=== PATIENT | female | born 1925 | race Caucasian/White ===

== ENCOUNTER 2016-11-02 10:37 | Observation (INO) ==
[2016-11-02] MEDS ORDERED: Naloxone 0.4 MG/ML INJ IVP PRN (14:17)
--- NOTE | 2016-11-02 14:26 | Internal Med History&Physical ---
<MassielFadumo Sergio - Last Filed: 11/02/16 14:24> Date of Encounter: 11/02/16 Time of Encounter: 13:30 Assessment and Plan (1) GI bleed Current visit: No Status: Acute Coffee ground emesis today at [facility], possibly over the weekend per family member. NG tube returning dk stomach contents. Abd rounded, soft, bs present, non-tender , denies pain. H & H stable, will continue to monitor. Protonix 40mg IV bid NPO NG tube to LIWS Monitor labs Qualifiers: GI bleed type/associated pathology: unspecified gastrointestinal hemorrhage type Qualified Code(s): K92.2 - Gastrointestinal hemorrhage, unspecified (2) Nausea & vomiting Current visit: Yes Status: Acute Vomiting episodes this a.m. at [facility]. Denies nausea now. Zofran 4mg IVP q6h prn n/v Qualifiers: Vomiting type: hematemesis Qualified Code(s): K92.0 - Hematemesis; R11.0 - Nausea (3) Dementia Current visit: Yes Status: Acute Pt has episodes of "chasing others" in the hallway and becoming aggressive with staff at [facility] per family. Pt taking Prolixin q4h after Xanax and Ativan were no longer effective. Will continue home medications once list is reconciled. Pt will have sitter since she has been pulling at NG tube. Pt is alert, oriented to name only, but does answer questions appropriately. Sitter Resume Prolixin Fall precautions Bed alarm Qualifiers: Dementia type: unspecified type Dementia behavioral disturbance: with behavioral disturbance Qualified Code(s): F03.91 - Unspecified dementia with behavioral disturbance (4) Risk for falls Current visit: Yes Status: Chronic R hip fx from fall 2 mos ago. Plan as above. (5) GERD (gastroesophageal reflux disease) Current visit: Yes Status: Chronic Plan as above Qualifiers: Esophagitis presence: esophagitis presence not specified Qualified Code(s) : K21.9 - Gastro-esophageal reflux disease without esophagitis Internal Medicine - H&P: HPI Chief complaint: upper GI bleed, n/v Admitted From: Hospital to Hospital Transfer Plans for Post Hospital Care: Transfer Senior Care Facility History of present illness: Ms. Honeycutt is a 89 year old female with minimal medical history other than GERD , prior GI bleed, recent R hip fx, and dementia. Pt is pleasant and was transfered from [facility] with upper GI bleed. She lives in an ECF and had an episode of dark emesis either 2 or 3 days ago per family at , again with nausea and coffee ground emesis this a.m. Pt was sent to [place], NG tube placed and is returning dk stomach contents. Pt denies pain or nausea now. She is alert to name only, however, appears to answer other questions appropriately. Abd rounded, non-tender, bs present. Family reports episode of same about 5-6 years ago. GI consult completed by Dr. Tierney. Past Med Surg Social Fam HX - Past Medical History Medical history: dementia, GI bleed (4-5 yrs ago) Psychiatric history: no psych history - Past Surgical History Surgical History: orthopedic, other - Social History Smoking Status: Never smoker Smokeless Tobacco Status: No Alcohol use: none Drug use: none Internal Medicine - H&P: Meds Acetaminophen [Tylenol] 500 mg PO Q6HR 11/02/16 [History] Celecoxib [Celebrex] 100 mg PO BID 11/02/16 [History] Cephalexin [Keflex] 500 mg PO BID 11/02/16 [History] Prolixin 1 mg PO Q4H 11/02/16 [History] Tramadol HCl [Ultram] 50 mg PO Q4H PRN 11/02/16 [History] Allergies No Known Allergies Allergy (Verified 09/08/16 02:27) All Systems PM: A 10-system review of systems was performed and is negative for pertinent findings except as documented above in the HPI. - Constitutional Constitutional: no chills, no fever(s), no falls, no weakness - Cardiovascular Cardiovascular ROS IM: no chest pain, no dyspnea on exertion, no edema - Respiratory Respiratory: no cough, no chest congestion - Gastrointestinal Gastrointestinal: coffee ground emesis, nausea, vomiting, no bloating, no constipation, no cramping, no diarrhea, no dysphagia, no heartburn, no hematemesis, no hematochezia, no loose stools - Genitourinary Genitourinary: dysuria - Constitutional General appearance: Present: cooperative, A&O X 1, pleasant, no acute distress Exam: Pt is alert to name only. She becomes agitated during exam and begins to pull on NG tube, however, is easily redirected. - Head Head exam: Present: normal inspection - Eye Eye exam: Present: normal appearance, conjuntiva pink - ENT ENT exam: Present: mucous membranes dry - Neck Neck exam general surgery: Present: normal inspection. Absent: lymphadenopathy , tenderness - Respiratory Respiratory exam: Absent: chest wall tenderness, decreased breath sounds, respiratory distress, rhonchi, stridor, wheezes - Cardiovascular Cardiovascular exam: Present: RRR, +S1, +S2. Absent: bradycardia, tachycardia - GI/Abdominal GI/Abdominal exam: Present: distended, normal bowel sounds, soft. Absent: guarding, tenderness - Neurological Exam Neurological exam: Present: alert, altered, strengths equal and symetr throughout. Absent: speech deficit Additional comments: Pt alert to name only. Internal Med - H&P Results - EKG Data Prior EKG available for review: no EKG comments: 11/02/16 14:41 Left Bundle Branch Block/Sinus rhythm Rate 90 OK int 135 QRS 38 QT/QTc 397/445 <Joe Tierney P - Last Filed: 11/02/16 19:36> Date of Encounter: 11/02/16 Internal Medicine - H&P: HPI History of present illness: Ms. Honeycutt is a 89 year old female All Systems PM: A 10-system review of systems was performed and is negative for pertinent findings except as documented above in the HPI. - Attending Attestation I examined this patient and my medical decision-making was reviewed with the PHYSICAL AERODYNAMICIST/PA/Advanced Practice Nurse/Resident Physician. I agree with the documented findings, disposition and treatment plan as described except to the extent set forth below.
[2016-11-02] MEDS ORDERED: *HR* LORazepam 2 MG/ML VIAL IVP ONE (14:31)
[2016-11-02] MEDS ORDERED: Water for inj. (sterile) 10 ML IV ONE (14:46)
[2016-11-02] MEDS ORDERED: Ondansetron 4 MG/2 ML VIAL IVP PRN (14:49)
[2016-11-02] MEDS: 0.9 % Sodium Chloride 1,000 ML IVC SCH (15:15)
[2016-11-02] MEDS ORDERED: Haloperidol Lactate 5 MG/ML VIAL IM ONE (16:20)
[2016-11-02] MEDS: Pantoprazole 40 MG VIAL IVP SCH (17:48)
[2016-11-03] MEDS ORDERED: Haloperidol Lactate 5 MG/ML VIAL IVP ONE (01:12)
[2016-11-03 05:02] LABS: Basophils % 0.5 %; Eosinophils # 0.2 K/mcL (0.0-0.6); Eosinophils % 1.8 %; Hematocrit 31.1 % (35.3-44.9); Hemoglobin 9.7 g/dL (11.5-15.4); Immature Granulocytes % 0.3 % (0-4); Lymphocytes # 1.5 K/mcL (0.6-4.6); Lymphocytes % 17.5 %; Mean Corpuscular HGB Conc 31.2 g/dL (31.6-35.5); Mean Corpuscular Hemoglobin 28.5 pg (28.0-33.3); Mean Corpuscular Volume 91.5 fL (83.0-100.0); Mean Platelet Volume 10.5 fL (9.4-12.4); Monocytes # 0.7 K/mcL (0.0-1.3); Monocytes % 8.5 %; Neutrophils # 6.2 K/mcL (1.6-8.9); Platelet Count 271 K/mcL (140-400); Red Cell Distribution Width 13.7 % (11.5-14.5); Segmented Neutrophils % 71.4 %
[2016-11-03 05:29] LABS: BUN/Creatinine Ratio 25 (6-26); Blood Urea Nitrogen 19 mg/dL (7-20); Calcium 8.2 mg/dL (8.6-10.8); Carbon Dioxide 30 mEq/L (19-29); Chloride 104 mEq/L (98-109); Glucose 79 mg/dL (70-99); Osmolality,Calculated 297 (280-300); Potassium 2.8 mEq/L (3.5-4.5); Sodium 143 mEq/L (136-145); eGFR For African Americans > 60 (> 60); eGFR For Non-African Americans > 60 (> 60)
[2016-11-03] MEDS: Pantoprazole 40 MG VIAL IVP SCH ×2 (06:21→17:54)
[2016-11-03] MEDS ORDERED: *HR* Midazolam HCl 5 MG/5 ML VIAL IVP ONE (07:18)
[2016-11-03] MEDS ORDERED: *HR* FentaNYL (PF) 100 MCG/2 ML VIAL ONE (07:19)
[2016-11-03] MEDS ORDERED: 0.9 % Sodium Chloride 1,000 ML IVC SCH (07:30)
[2016-11-03] MEDS ORDERED: Tetracaine/Benzocaine/Butamben 200MG/SPRAY (100SPY/BOT) MM ONE (07:43)
[2016-11-03] MEDS ORDERED: *HR* Midazolam HCl 5 MG/5 ML VIAL IVP PRN (07:43)
[2016-11-03] MEDS ORDERED: *HR* FentaNYL (PF) 100 MCG/2 ML VIAL IVP PRN (07:43)
[2016-11-03] MEDS ORDERED: Simethicone 40 MG/0.6 ML MLS IR ONE (07:43)
[2016-11-03] MEDS: 0.9 % Sodium Chloride 1,000 ML IVC SCH (09:03)
[2016-11-03] MEDS: Potassium Chloride 40 MEQ, Lidocaine 1% 2 ML in D5% in Water 500 ML IVPB SCH ×3 (11:37→20:16)
[2016-11-03] MEDS: amLODIPine 5 MG TABLET PO SCH ×2 (11:39→13:52)
--- NOTE | 2016-11-03 12:06 | Gastroenterology Consult Note ---
<Hu Fam - Last Filed: 11/03/16 12:03> Date of Encounter: 11/03/16 Time of Encounter: 10:30 - Assessment and plan (1) Upper GI bleed Status: Acute Assessment and plan: EGD completed this AM large hiatal hernia, 2 localized spot with visible vessels with no bleeding but stigmata of recent bleeding. Clips were placed. Continue on soft diet. Carafate 3 times a day for one month, twice a day PPI 2 weeks then daily for 2 months. (2) Nausea & vomiting Status: Acute Assessment and plan: Secondary to upper GI bleed. Qualifiers: Vomiting type: hematemesis Qualified Code(s): K92.0 - Hematemesis; R11.0 - Nausea (3) Dementia Status: Acute Qualifiers: Dementia type: unspecified type Dementia behavioral disturbance: with behavioral disturbance Qualified Code(s): F03.91 - Unspecified dementia with behavioral disturbance - Time Spent With Patient Total time spent is greater than 50% in coordination of care (as documented) at patient's floor/unit and/or counseling patient: GI History of Present Illness - Data of Consult Patient: new to practice Consult date: 11/03/16 Requesting Physician: Alexi Estevez - Consult Narrative Reason for consult: Upper GI bleed History of present illness: Ms. Honeycutt is a 89 year old female with PMHx of dementia, GERD, recent right hip fx, and GI bleed 4-5 years ago. She was transferred for [facility] with upper GI bleed. She had an episode of dark emesis at [facility] 2-3 days ago, and had coffee- ground emesis yesterday. NG tube was inserted and returned with dark stomach contents. Family reported similar episode of GI bleeding several years ago. Pt denies abdominal pain or nausea at this time. Procedures: EGD 08/07/2010 Dr. Louis with LA Grade D esophagitis, hiatal hernia, diverticulum and middle third of esophagus, bleeding erosive gastropathy. Biopsy consistent with ulcerative esophagitis, no intestinal metaplasia, dysplasia or malignancy. NSAIDs: None Anticoagulation: None Past Med Surg Social Fam HX - Past Medical History Medical history: dementia, GI bleed (4-5 yrs ago) Psychiatric history: no psych history - Past Surgical History Surgical History: orthopedic, other - Social History Smoking Status: Never smoker Smokeless Tobacco Status: No Alcohol use: none Drug use: none - Gastrointestinal Gastrointestinal: Present: as per HPI - Constitutional Constitutional: as per HPI - EENT Eyes: as per HPI Ears: Present: as per HPI Nose, mouth and throat: Present: as per HPI - Cardiovascular Cardiovascular ROS: Present: as per HPI - Respiratory Respiratory IM: Present: as per HPI - Genitourinary Genitourinary: Absent: change in color, Urinary frequency - Neurological ROS Neurological GI: Present: as per HPI - Hematologic/Lymphatic Hematologic/Lymphatic pediatric: Present: as per HPI - Musculoskeletal Musculoskeletal ROS GI: Present: as per HPI - Integumentary Integumentary GI: Present: as per HPI - Psychiatric ROS Psychiatric GI: Present: as per HPI - Endocrine Endocrine IM: Present: as per HPI - Constitutional Vitals: Temp Pulse Resp BP Pulse Ox 98.5 F 79 18 181/81 95 11/03/16 11:57 11/03/16 11:57 11/03/16 11:57 11/03/16 11:57 11/03/16 11:57 General appearance: Present: cooperative, no acute distress, answers questions appropriately - Head Head exam: Present: atraumatic, normocephalic - Eye Eye exam: Present: normal appearance, sclera anicteric - ENT ENT exam: Present: mucous membranes dry - Neck Neck exam general surgery: Present: normal inspection, trachea midline - Respiratory Respiratory exam: Present: CTAB. Absent: rales, rhonchi - Cardiovascular Cardiovascular exam: Present: RRR, +S1, +S2 - GI/Abdominal GI/Abdominal exam: Present: soft, no peritoneal signs. Absent: distended, firm , guarding, tenderness - Rectal Rectal exam: Present: deferred - Extremities Exam Extremities exam: Present: warm - Neurological Exam Neurological exam: Present: no focal deficits - Psychiatric Psychiatric exam: Present: normal affect, normal mood - Skin Skin exam: Present: dry, intact, normal color, warm Results - Labs CBC & Chem 7: 11/03/16 04:42 11/03/16 04:42 Labs: Last Result Calcium 8.2 mg/dL (8.6-10.8) L 11/03/16 04:42 Entire Visit Hgb 9.7 g/dL (11.5-15.4) L D 11/03/16 04:42 Hct 31.1 % (35.3-44.9) L 11/03/16 04:42 Consult Discharge Plan - Plan Referrals: Librado Bennett MD [Primary Care Provider] - Tonia Aguilar MD [Partnered Physician] - <Tonia Aguilar - Last Filed: 11/16/16 18:01> Time of Encounter: 08:00 - Time Spent With Patient Total time spent is greater than 50% in coordination of care (as documented) at patient's floor/unit and/or counseling patient: GI History of Present Illness - Data of Consult Requesting Physician: Alexi Estevez - Consult Narrative History of present illness: Ms. Honeycutt is a 89 year old female - Constitutional Vitals: Temp Pulse Resp BP Pulse Ox 97.4 F L 78 18 151/81 97 11/04/16 15:54 11/04/16 15:54 11/04/16 15:54 11/04/16 15:54 11/04/16 15:54 Results - Labs CBC & Chem 7: 11/04/16 05:35 11/04/16 05:35 Labs: Last Result Calcium 8.5 mg/dL (8.6-10.8) L 11/04/16 05:35 Entire Visit Hgb 9.9 g/dL (11.5-15.4) L 11/04/16 05:35 Hct 30.2 % (35.3-44.9) L 11/04/16 05:35 - Attending Attestation I examined this patient and my medical decision-making was reviewed with the TUFTER HAND/PA/Advanced Practice Nurse/Resident Physician. I agree with the documented findings, disposition and treatment plan as described except to the extent set forth below.
[2016-11-03] MEDS: Sucralfate 1 GM TABLET PO SCH ×3 (14:13→23:23)
--- NOTE | 2016-11-03 15:23 | Internal Med Progress Note ---
Date of Encounter: 11/03/16 Time of Encounter: 15:21 - Assessment and plan (1) Upper GI bleed Current Visit: Yes Status: Acute Assessment and plan: EGD completed this AM large hiatal hernia, 2 localized spot with visible vessels with no bleeding but stigmata of recent bleeding. Clips were placed. Continue on soft diet. GI recommended Carafate 3 times a day for one month, twice a day PPI 2 weeks then daily for 2 months. will monitor cbc, repeat tomm am, if stable dc (2) Dementia Current Visit: Yes Status: Acute Assessment and plan: at baseline. Qualifiers: Dementia type: unspecified type Dementia behavioral disturbance: with behavioral disturbance Qualified Code(s): F03.91 - Unspecified dementia with behavioral disturbance (3) Nausea & vomiting Current Visit: Yes Status: Acute Assessment and plan: resolved. Qualifiers: Vomiting type: hematemesis Qualified Code(s): K92.0 - Hematemesis; R11.0 - Nausea (4) Hypertension Current Visit: Yes Status: Acute Assessment and plan: uncontrolled. have added amlodipine this morning. will continue to monitor labetalol IV prn if systolic BP >180 Qualifiers: Hypertension type: essential hypertension Qualified Code(s): I10 - Essential (primary) hypertension - Time Spent With Patient 25 - 35 minutes - Subjective Interval history: Patient seen in the bedside, lying in bed in no acute distress. Denies abdominal pain, nausea or vomiting. Status post EGD completed this AM large hiatal hernia, 2 localized spot with visible vessels with no bleeding but stigmata of recent bleeding. Clips were placed. Continue on soft diet. - Constitutional Vitals: Temp Pulse Resp BP Pulse Ox 98.5 F 79 18 181/81 95 11/03/16 11:57 11/03/16 11:57 11/03/16 11:57 11/03/16 11:57 11/03/16 11:57 General appearance: Present: cooperative, A&O X 1, pleasant, no acute distress Exam: - Head Head exam: Present: atraumatic, normocephalic - Eye Eye exam: Present: normal appearance, sclera anicteric - ENT ENT exam: Present: mucous membranes dry - Neck Neck exam general surgery: Present: normal inspection, trachea midline - Respiratory Respiratory exam: Present: CTAB. Absent: rales, rhonchi - Cardiovascular Cardiovascular exam: Present: RRR, +S1, +S2 - GI/Abdominal GI/Abdominal exam: Present: soft, no peritoneal signs. Absent: distended, firm , guarding, tenderness - Rectal Rectal exam: Present: deferred - Extremities Exam Extremities exam: Present: warm - Neurological Exam Neurological exam: Present: no focal deficits - Psychiatric Psychiatric exam: Present: normal affect, normal mood - Skin Skin exam: Present: dry, intact, normal color, warm Internal Medicine: Result - Labs CBC & Chem 7: 11/03/16 04:42 11/03/16 04:42 Labs: Short CBC 11/03/16 Range/Units 04:42 WBC 8.7 (4.3-11.1) K/mcL Hgb 9.7 L D (11.5-15.4) g/dL Hct 31.1 L (35.3-44.9) % Plt Count 271 (140-400) K/mcL Neutrophils # 6.2 (1.6-8.9) K/mcL BMP 11/03/16 04:42 Sodium 143 Potassium 2.8 L Chloride 104 Carbon Dioxide 30 H BUN 19 Creatinine 0.77 Glucose 79 Calcium 8.2 L Consult Discharge Plan - Plan Referrals: Librdao Bennett MD [Primary Care Provider] -
[2016-11-03] MEDS ORDERED: *HR* Labetalol 20 MG/4 ML SYRINGE IVP PRN (15:24)
[2016-11-04] MEDS: 0.9 % Sodium Chloride 1,000 ML IVC SCH ×2 (04:14→14:30)
[2016-11-04 05:58] LABS: Basophils % 0.3 %; Eosinophils # 0.5 K/mcL (0.0-0.6); Eosinophils % 5.4 %; Hematocrit 30.2 % (35.3-44.9); Hemoglobin 9.9 g/dL (11.5-15.4); Immature Granulocytes % 0.3 % (0-4); Lymphocytes # 1.8 K/mcL (0.6-4.6); Mean Corpuscular HGB Conc 32.8 g/dL (31.6-35.5); Mean Corpuscular Hemoglobin 28.8 pg (28.0-33.3); Mean Corpuscular Volume 87.8 fL (83.0-100.0); Mean Platelet Volume 10.2 fL (9.4-12.4); Monocytes # 0.7 K/mcL (0.0-1.3); Monocytes % 8.1 %; Neutrophils # 5.7 K/mcL (1.6-8.9); Platelet Count 279 K/mcL (140-400); Red Blood Count 3.44 M/mcL (3.82-4.97); Red Cell Distribution Width 13.7 % (11.5-14.5); Segmented Neutrophils % 64.9 %
[2016-11-04] MEDS: Pantoprazole 40 MG VIAL IVP SCH (06:00)
[2016-11-04 06:14] LABS: BUN/Creatinine Ratio 20 (6-26); Blood Urea Nitrogen 13 mg/dL (7-20); Calcium 8.5 mg/dL (8.6-10.8); Carbon Dioxide 24 mEq/L (19-29); Chloride 107 mEq/L (98-109); Glucose 92 mg/dL (70-99); Osmolality,Calculated 286 (280-300); Sodium 138 mEq/L (136-145); eGFR For African Americans > 60 (> 60); eGFR For Non-African Americans > 60 (> 60)
[2016-11-04] MEDS: amLODIPine 5 MG TABLET PO SCH (09:45)
[2016-11-04] MEDS: Sucralfate 1 GM TABLET PO SCH ×2 (09:46→14:30)
--- NOTE | 2016-11-04 15:46 | Discharge Summary ---
Date of Encounter: 11/04/16 Time of Encounter: 15:44 - Discharge Diagnosis (1) Upper GI bleed Priority: Primary Status: Acute (2) Dementia Priority: Secondary Status: Acute Qualifiers: Dementia type: unspecified type Dementia behavioral disturbance: with behavioral disturbance Qualified Code(s): F03.91 - Unspecified dementia with behavioral disturbance (3) Nausea & vomiting Priority: Primary Status: Acute Qualifiers: Vomiting type: hematemesis Qualified Code(s): K92.0 - Hematemesis; R11.0 - Nausea (4) Hypertension Priority: Secondary Status: Acute Qualifiers: Hypertension type: essential hypertension Qualified Code(s): I10 - Essential (primary) hypertension - Discharge Medications Prescriptions: Amlodipine [Norvasc] 10 mg PO DAILY #30 tablet Omeprazole [PriLOSEC] 40 mg PO BIDAC #120 capsule. Sucralfate [Carafate] 1 gm PO QIDAC #120 tablet Home Medications: Acetaminophen [Tylenol] 500 mg PO Q6HR 11/02/16 [History] Celecoxib [Celebrex] 100 mg PO BID 11/02/16 [History] Cephalexin [Keflex] 500 mg PO BID 11/02/16 [History] Fluphenazine HCl 1 mg PO Q4H PRN 11/02/16 [History] Tramadol HCl [Ultram] 50 mg PO Q4H PRN 11/02/16 [History] Amlodipine [Norvasc] 10 mg PO DAILY #30 tablet 11/04/16 [Rx] Omeprazole [PriLOSEC] 40 mg PO BIDAC #120 capsule. 11/04/16 [Rx] Sucralfate [Carafate] 1 gm PO QIDAC #120 tablet 11/04/16 [Rx] Allergies/Adverse Reactions: Allergies No Known Allergies Allergy (Verified 09/08/16 02:27) Procedures/tests Complete & Pending: Procedures Performed prior 72 hours Category Date Time Status ECG 12 lead ECG [ECG] Routine Y 11/02/16 08:52 Completed Date of admission: 11/02/16 12:45 Primary care physician: Librado Bennett MD Consults: 11/02/16 14:23 Consult to Occupational Therapy [CONS] Routine Comment: Evaluate, develop and implement POC Consult to Physical Therapy [CONS] Routine Comment: Evaluate, develop and implement POC 11/03/16 09:29 Consult to Lab Head [CONS] Routine Reason for SW Consult: discharge planning Discharging clinician: Alexi Estevez Anticipated date of discharge: 11/04/16 - Patient Status Disposition: Transfer SNF Condition: Fair Functional capacity at discharge: uses cane/walker Overall status at discharge: patient is progressing back to baseline - Discharge Instructions Follow Up With: Librado Bennett MD [Primary Care Provider] - Tonia Aguilar MD [Partnered Physician] - - Diet and Activity Activity: as per physical therapy Diet: advance to your usual diet Interval History: Ms. Honeycutt is a 89 year old female with PMHx of dementia, GERD, recent right hip fx, and GI bleed 4-5 years ago. She was transferred for [place] [facility] with upper GI bleed. She had an episode of dark emesis at [facility] 2-3 days ago, and had coffee- ground emesis yesterday. NG tube was inserted and returned with dark stomach contents. Family reported similar episode of GI bleeding several years ago. Pt denies abdominal pain or nausea at this time. Procedures: EGD 08/07/2010 Dr. Louis with [place] Grade D esophagitis, hiatal hernia, diverticulum and middle third of esophagus, bleeding erosive gastropathy. Biopsy consistent with ulcerative esophagitis, no intestinal metaplasia, dysplasia or malignancy. NSAIDs: None Anticoagulation: None She was admitted for further management appreciate need. GI was consulted and EGD was completed , large hiatal hernia, 2 localized spot with visible vessels with no bleeding but stigmata of recent bleeding. Clips were placed. She was started on Carafate 3 times a day for one month, twice a day PPI 2 weeks then daily for 2 months. repeat cbc today is stable, she denies any hematemesis or angela and she is being dc in stable condition. Hospital course: Ms. Honeycutt is a 89 year old female Time spent discussing smoking cessation with patient: more than 10 minutes - Time Spent with Patient Total time spent providing and/or coordinating discharge services: Greater than 30 minutes - Constitutional Vitals: Temp Pulse Resp BP Pulse Ox 97.4 F L 67 18 147/70 99 11/04/16 11:35 11/04/16 11:35 11/04/16 11:35 11/04/16 11:35 11/04/16 11:35 General appearance: Present: cooperative, A&O X 1, pleasant, no acute distress Exam: Head Head exam: Present: atraumatic, normocephalic - Eye Eye exam: Present: normal appearance, sclera anicteric - ENT ENT exam: Present: mucous membranes dry - Neck Neck exam general surgery: Present: normal inspection, trachea midline - Respiratory Respiratory exam: Present: CTAB. Absent: rales, rhonchi - Cardiovascular Cardiovascular exam: Present: RRR, +S1, +S2 - GI/Abdominal GI/Abdominal exam: Present: soft, no peritoneal signs. Absent: distended, firm , guarding, tenderness - Rectal Rectal exam: Present: deferred - Extremities Exam Extremities exam: Present: warm - Neurological Exam Neurological exam: Present: no focal deficits - Psychiatric Psychiatric exam: Present: normal affect, normal mood - Skin Skin exam: Present: dry, intact, normal color, warm
[2016-11-04 15:55] VITALS: BP 151/81
--- NOTE | 2016-11-04 16:41 | Physician Discharge Referral ---
ExtendedCare Referral Info Transfer To: [facility] Provider in Charge: shakir cook Institutional Level of Care: Intermediate - MR - Diagnosis (1) Upper GI bleed Status: Acute (2) Dementia Status: Acute (3) Nausea & vomiting Status: Acute (4) Hypertension Status: Acute - Transfer Medications Prescriptions: Amlodipine [Norvasc] 10 mg PO DAILY #30 tablet Omeprazole [PriLOSEC] 40 mg PO BIDAC #120 capsule. Sucralfate [Carafate] 1 gm PO QIDAC #120 tablet Home Medications: Acetaminophen [Tylenol] 500 mg PO Q6HR 11/02/16 [History] Celecoxib [Celebrex] 100 mg PO BID 11/02/16 [History] Cephalexin [Keflex] 500 mg PO BID 11/02/16 [History] Fluphenazine HCl 1 mg PO Q4H PRN 11/02/16 [History] Tramadol HCl [Ultram] 50 mg PO Q4H PRN 11/02/16 [History] Amlodipine [Norvasc] 10 mg PO DAILY #30 tablet 11/04/16 [Rx] Omeprazole [PriLOSEC] 40 mg PO BIDAC #120 capsule. 11/04/16 [Rx] Sucralfate [Carafate] 1 gm PO QIDAC #120 tablet 11/04/16 [Rx] Allergies/Adverse Reactions: Allergies No Known Allergies Allergy (Verified 09/08/16 02:27) - Respiratory Orders Smoking Cessation: Smoking cessation has been advised. For more information, call the [employer] Tobacco Quit Line at 7-327-RZVL-NOW. - Advance Directives Code Status: DNR-Arrest/Don't Intubate - Mobility Orders Chair - Rehabiliation Orders Rehab Potential: Fair Rehab Orders: ROM Exercises, Evaluation for Physical Therapy, Evaluation for Occupational Therapy - Diet Orders Regular CERTIFICATION: I certify that the transfer of the above named patient to an Extended Care Facility is necessary for the continuing treatment of the diagnosis listed. The above information is true and accurate reflection of patient's current condition. Confidential - Redisclosure prohibited without a patient's written consent.
== END 2016-11-04 17:25 ==
LOC: 3ANU
PROVIDERS: ADMIT Internal Medicine; ATTEND Internal Medicine Endocrinology, Diabetes & Metabolism

== ENCOUNTER 2016-11-07 18:05 | Inpatient (IN) ==
--- NOTE | 2016-11-07 18:15 | Emergency Department Note ---
Disposition Clinical Impression: Hematemesis, GI bleed Disposition: Admitted As Inpatient Condition: Serious General Adult HPI - General Chief complaint: ED GI Bleed Stated complaint: gi bleed Time Seen by Provider: 11/07/16 18:08 - Related Data Home Medications Medication Instructions Recorded Confirmed Acetaminophen [Tylenol] 500 mg PO Q6HR PRN 11/02/16 11/08/16 Celecoxib [Celebrex] 100 mg PO BID 11/02/16 11/08/16 Fluphenazine HCl 1 mg PO Q4H PRN 11/02/16 11/08/16 Tramadol HCl [Ultram] 50 mg PO Q4H PRN 11/02/16 11/08/16 Ferrous Sulfate [Iron] 325 mg PO DAILY 11/08/16 11/08/16 Previous Rx's Medication Instructions Recorded Amlodipine [Norvasc] 10 mg PO DAILY #30 tablet 11/04/16 Omeprazole [PriLOSEC] 40 mg PO BIDAC #120 capsule. 11/04/16 Sucralfate [Carafate] 1 gm PO QIDAC #120 tablet 11/04/16 Allergies Allergy/AdvReac Type Severity Reaction Status Date / Time No Known Allergies Allergy Verified 09/08/16 02:27 Past Medical History - Past Medical History Medical history: Reports: dementia, GI bleed (4-5 yrs ago) Surgical history: Reports: orthopedic, other Psychiatric history: Reports: no psych history - Social History Smoking Status: Never smoker Smokeless Tobacco Status: No Alcohol use: Reports: none Drug use: Reports: none Course Vital Signs Temperature 98.1 F 11/07/16 18:09 Pulse Rate 93 11/07/16 18:09 Respiratory Rate 20 11/07/16 18:09 Blood Pressure 129/59 11/07/16 18:09 O2 Sat by Pulse Oximetry 96 11/07/16 18:09 Temperature 96.6 F L 11/09/16 10:40 Pulse Rate 100 11/09/16 10:40 Respiratory Rate 16 11/09/16 10:40 Blood Pressure 131/98 11/09/16 10:40 O2 Sat by Pulse Oximetry 100 11/09/16 10:40 Oxygen Delivery Oxygen Delivery Room Air Medical Decision Making - Lab Data Result diagrams: 11/09/16 11:09 11/09/16 11:09 Lab Results 11/07/16 11/07/16 11/07/16 Range/Units 18:56 18:56 18:56 WBC 10.2 (4.3-11.1) K/mcL RBC 3.82 (3.82-4.97) M/mcL Hgb 10.9 L (11.5-15.4) g/dL Hct 34.0 L (35.3-44.9) % MCV 89.0 (83.0-100.0) fL MCH 28.5 (28.0-33.3) pg MCHC 32.1 (31.6-35.5) g/dL RDW 13.6 (11.5-14.5) % Plt Count 354 (140-400) K/mcL MPV 10.3 (9.4-12.4) fL Immature Gran % 0.4 (0-4) % Seg Neutrophils % 81.3 % Lymphocytes % 12.4 % Monocytes % 5.6 % Eosinophils % 0.1 % Basophils % 0.2 % Neutrophils # 8.3 (1.6-8.9) K/mcL Lymphocytes # 1.3 (0.6-4.6) K/mcL Monocytes # 0.6 (0.0-1.3) K/mcL Eosinophils # 0.0 (0.0-0.6) K/mcL Basophils # 0.0 (0.0-0.2) K/mcL PT 11.0 (9.4-12.1) Seconds INR 1.0 APTT 21.4 L (26.0-36.0) Seconds Sodium 140 (136-145) mEq/L Potassium 3.8 (3.5-4.5) mEq/L Chloride 106 (98-109) mEq/L Carbon Dioxide 23 (19-29) mEq/L BUN 22 H (7-20) mg/dL Creatinine 0.79 (0.57-1.11) mg/dL Est GFR ( Amer) > 60 (> 60) Est GFR (Non-Af Amer) > 60 (> 60) BUN/Creatinine Ratio 28 H (6-26) Glucose 136 H (70-99) mg/dL Calculated Osmolality 295 (280-300) Calcium 8.3 L (8.6-10.8) mg/dL Total Bilirubin 0.4 (0.2-1.2) mg/dL AST 19 (5-34) Units/L ALT 10 (0-55) Units/L Alkaline Phosphatase 67 (38-126) Units/L Serum Total Protein 5.9 L (6.0-8.3) g/dL Albumin 3.0 L (3.5-5.0) g/dL Globulin 2.9 (2.4-3.5) g/dL Albumin/Globulin Ratio 1.0 L (1.1-2.2) Gastric Occult Blood (Negative) Blood Type Antibody Screen 11/07/16 11/07/16 11/08/16 Range/Units 18:56 20:00 00:49 WBC 11.0 (4.3-11.1) K/mcL RBC 3.61 L (3.82-4.97) M/mcL Hgb 10.4 L (11.5-15.4) g/dL Hct 32.1 L (35.3-44.9) % MCV 88.9 (83.0-100.0) fL MCH 28.8 (28.0-33.3) pg MCHC 32.4 (31.6-35.5) g/dL RDW 13.6 (11.5-14.5) % Plt Count 365 (140-400) K/mcL MPV 10.5 (9.4-12.4) fL Immature Gran % 0.5 (0-4) % Seg Neutrophils % 87.3 % Lymphocytes % 7.6 % Monocytes % 4.5 % Eosinophils % 0.0 % Basophils % 0.1 % Neutrophils # 9.6 H (1.6-8.9) K/mcL Lymphocytes # 0.8 (0.6-4.6) K/mcL Monocytes # 0.5 (0.0-1.3) K/mcL Eosinophils # 0.0 (0.0-0.6) K/mcL Basophils # 0.0 (0.0-0.2) K/mcL PT (9.4-12.1) Seconds INR APTT (26.0-36.0) Seconds Sodium (136-145) mEq/L Potassium (3.5-4.5) mEq/L Chloride (98-109) mEq/L Carbon Dioxide (19-29) mEq/L BUN (7-20) mg/dL Creatinine (0.57-1.11) mg/dL Est GFR ( Amer) (> 60) Est GFR (Non-Af Amer) (> 60) BUN/Creatinine Ratio (6-26) Glucose (70-99) mg/dL Calculated Osmolality (280-300) Calcium (8.6-10.8) mg/dL Total Bilirubin (0.2-1.2) mg/dL AST (5-34) Units/L ALT (0-55) Units/L Alkaline Phosphatase (38-126) Units/L Serum Total Protein (6.0-8.3) g/dL Albumin (3.5-5.0) g/dL Globulin (2.4-3.5) g/dL Albumin/Globulin Ratio (1.1-2.2) Gastric Occult Blood Positive A (Negative) Blood Type O POSITIVE Antibody Screen NEGATIVE 11/08/16 11/08/16 11/08/16 Range/Units 00:49 08:38 12:35 WBC (4.3-11.1) K/mcL RBC (3.82-4.97) M/mcL Hgb 9.7 L 9.2 L (11.5-15.4) g/dL Hct 30.8 L 30.3 L (35.3-44.9) % MCV (83.0-100.0) fL MCH (28.0-33.3) pg MCHC (31.6-35.5) g/dL RDW (11.5-14.5) % Plt Count (140-400) K/mcL MPV (9.4-12.4) fL Immature Gran % (0-4) % Seg Neutrophils % % Lymphocytes % % Monocytes % % Eosinophils % % Basophils % % Neutrophils # (1.6-8.9) K/mcL Lymphocytes # (0.6-4.6) K/mcL Monocytes # (0.0-1.3) K/mcL Eosinophils # (0.0-0.6) K/mcL Basophils # (0.0-0.2) K/mcL PT (9.4-12.1) Seconds INR APTT (26.0-36.0) Seconds Sodium 141 (136-145) mEq/L Potassium 3.9 (3.5-4.5) mEq/L Chloride 104 (98-109) mEq/L Carbon Dioxide 23 (19-29) mEq/L BUN 27 H (7-20) mg/dL Creatinine 0.92 (0.57-1.11) mg/dL Est GFR ( Amer) > 60 (> 60) Est GFR (Non-Af Amer) 57 L (> 60) BUN/Creatinine Ratio 29 H (6-26) Glucose 191 H (70-99) mg/dL Calculated Osmolality 302 H (280-300) Calcium 8.9 (8.6-10.8) mg/dL Total Bilirubin (0.2-1.2) mg/dL AST (5-34) Units/L ALT (0-55) Units/L Alkaline Phosphatase (38-126) Units/L Serum Total Protein (6.0-8.3) g/dL Albumin (3.5-5.0) g/dL Globulin (2.4-3.5) g/dL Albumin/Globulin Ratio (1.1-2.2) Gastric Occult Blood (Negative) Blood Type Antibody Screen Attestation Statement - Attestation Attestation: I examined this patient and my medical decision-making was reviewed with the MANAGER ELECTRICAL/PA/Advanced Practice Nurse/Resident Physician. I agree with the documented findings, disposition and treatment plan as described except to the extent set forth below. Face to face time provided Patient presents from the extended care facility with reports of hematemesis. Patient is unable to corroborate this history. She appears in no acute distress. She does complain of mild epigastric pain. She recently underwent upper endoscopy in this report was reviewed by me with the resident physician. Care will be endorsed to the oncoming physician at 7 PM pending completion of studies and reevaluation. Please see their note for final disposition
[2016-11-07] MEDS ORDERED: Pantoprazole 40 MG VIAL IVP ONE (18:25)
--- NOTE | 2016-11-07 18:31 | Emergency Department Note ---
Disposition Clinical Impression: Hematemesis Qualifiers: Nausea presence: unspecified Qualified Code(s): K92.0 - Hematemesis Disposition: Still a Patient Condition: Good Forms: ED Satisfaction Letter Time of Disposition: 18:38 GI Bleed HPI - General Chief complaint: ED GI Bleed Stated complaint: gi bleed Time Seen by Provider: 11/07/16 18:08 Source: patient, EMS Mode of arrival: ambulatory Limitations: no limitations Nursing Notes Reviewed: Yes Vital Signs Reviewed: Yes - History of Present Illness HPI Narrative: Ms. Honeycutt is an 89 year old female with history of gerd, history of previous gi bleed, hx of hip fracture, and dementia who presents to the ED with family members with complaint of 4-5 episodes of hematemesis earlier today. Patient was recently seen at [place] [facility] and evaluated at [facility] for hematemesis. Review of report 11/03/16 for upper endoscopy revealed large lower esophageal diverticulum , large hiatal hernia, two localized spots with visible stigmata of recent bleed found in proximal gastric body in herniated portion, clip placed. Patient has since been symptom free until this morning. Emesis was dark black specks of blood and smelly. Patient reports decreased appetite for several months and decreased energy. Patient denies fevers, chills, sweats, changes in vision or hearing, nausea, chest pain, shortness of breath, abdominal pain, changes in bowels or bladder, weakness, or loss of sensation. According to family members, they are concerned because the patient had episodes of hematemesis and feel the patient is unable to make decisions at this time as they report she was complaining of associated abdominal pain. - Related Data Home Medications Medication Instructions Recorded Confirmed Acetaminophen [Tylenol] 500 mg PO Q6HR 11/02/16 11/02/16 Celecoxib [Celebrex] 100 mg PO BID 11/02/16 11/02/16 Cephalexin [Keflex] 500 mg PO BID 11/02/16 11/02/16 Fluphenazine HCl 1 mg PO Q4H PRN 11/02/16 11/02/16 Tramadol HCl [Ultram] 50 mg PO Q4H PRN 11/02/16 11/02/16 Previous Rx's Medication Instructions Recorded Amlodipine [Norvasc] 10 mg PO DAILY #30 tablet 11/04/16 Omeprazole [PriLOSEC] 40 mg PO BIDAC #120 capsule. 11/04/16 Sucralfate [Carafate] 1 gm PO QIDAC #120 tablet 11/04/16 Allergies Allergy/AdvReac Type Severity Reaction Status Date / Time No Known Allergies Allergy Verified 09/08/16 02:27 Constitutional: Reports: as per HPI. Denies: fever, chills, weakness Eyes: Reports: as per HPI ENT ED: Reports: as per HPI Cardiovascular: Reports: as per HPI. Denies: chest pain, palpitations Respiratory: Reports: as per HPI. Denies: cough, dyspnea, wheezes Gastrointestinal: Reports: as per HPI, abdominal pain, hematemesis. Denies: nausea, vomiting, diarrhea, constipation, melena, hematochezia Genitourinary: Reports: as per HPI. Denies: dysuria, frequency, hematuria Musculoskeletal: Reports: as per HPI. Denies: back pain, neck pain Integumentary: Reports: as per HPI. Denies: rash Neurological: Reports: as per HPI. Denies: headache, weakness, numbness, paresthesias, confusion Psychiatric: Reports: as per HPI Endocrine: Reports: as per HPI Hematological/Lymphatic: Reports: as per HPI Allergic/Immunologic: Reports: as per HPI Past Medical History - Past Medical History Medical history: Reports: dementia, GI bleed (4-5 yrs ago) Surgical history: Reports: orthopedic, other Psychiatric history: Reports: no psych history - Social History Smoking Status: Never smoker Smokeless Tobacco Status: No Alcohol use: Reports: none Drug use: Reports: none Physical Exam - General Limitations: no limitations General appearance: alert, in no apparent distress - Head Head exam: atraumatic, normocephalic, normal inspection - Eye Eye exam: Present: normal appearance, PERRL, EOMI - ENT ENT exam: normal exam, normal oropharynx, mucous membranes moist - Neck Neck exam: Present: normal inspection, full ROM, trachea midline - Chest Chest inspection: Present: normal inspection, symmetric chest wall rise. Absent : tenderness - Respiratory Respiratory exam: Present: normal lung sounds bilaterally - Cardiovascular Cardiovascular exam: Present: regular rate, normal rhythm, normal heart sounds, +S1, +S2 - Abdominal Exam Abdominal exam: Present: soft, Non-Tender, normal bowel sounds. Absent: tenderness - Rectal Exam Rectal exam: Present: other (Patient refused rectal exam) - Extremities Exam Extremities exam: Present: normal inspection, full ROM, normal capillary refill. Absent: tenderness, pedal edema, joint swelling, calf tenderness - Back Exam Back exam: Present: normal inspection, full ROM. Absent: tenderness - Neurological Exam Neurological exam: Present: alert, oriented X3 (place person time and situation) , CN II-XII intact, reflexes normal. Absent: motor sensory deficit - Psychiatric Psychiatric exam: Present: normal affect, normal mood - Skin Skin exam: Present: warm, dry, intact, normal color. Absent: rash, diaphoresis , erythema, pallor Course Course Narrative: Patient is an 89 year old female who presents with family members for concerns of hematemesis episodes today. Patient was recently admitted and evaluated for hematemesis on 11/02/16. Endoscopy report was reviewed which revealed two spots in proximal gastric body that revealed spots with visible vessels. Likely source of recurrent hematemesis. Will check lab work to determine severity of current illness and need for additional workup. Vital Signs Temperature 98.1 F 11/07/16 18:09 Pulse Rate 93 11/07/16 18:09 Respiratory Rate 20 11/07/16 18:09 Blood Pressure 129/59 11/07/16 18:09 O2 Sat by Pulse Oximetry 96 11/07/16 18:09 Temperature 98.1 F 11/07/16 18:09 Pulse Rate 93 11/07/16 18:09 Respiratory Rate 20 11/07/16 18:09 Blood Pressure 129/59 11/07/16 18:09 O2 Sat by Pulse Oximetry 96 11/07/16 18:09 Oxygen Delivery Oxygen Delivery Room Air GI Bleed - EKG Data EKG attestation: Yes I reviewed and interpreted this EKG. EKG results narrative: Sinus rhythm with occasional supraventricular premature complexes, Left axis deviation, LBBB. No st elevations or depressions or t wave inversions. No changes from comparison ekg.
[2016-11-07 19:10] LABS: Basophils % 0.2 %; Eosinophils % 0.1 %; Hemoglobin 10.9 g/dL (11.5-15.4); Immature Granulocytes % 0.4 % (0-4); Lymphocytes # 1.3 K/mcL (0.6-4.6); Lymphocytes % 12.4 %; Mean Corpuscular HGB Conc 32.1 g/dL (31.6-35.5); Mean Corpuscular Hemoglobin 28.5 pg (28.0-33.3); Mean Platelet Volume 10.3 fL (9.4-12.4); Monocytes # 0.6 K/mcL (0.0-1.3); Monocytes % 5.6 %; Neutrophils # 8.3 K/mcL (1.6-8.9); Platelet Count 354 K/mcL (140-400); Red Blood Count 3.82 M/mcL (3.82-4.97); Red Cell Distribution Width 13.6 % (11.5-14.5); Segmented Neutrophils % 81.3 %
[2016-11-07 19:16] LABS: Activated Partial Thrombo Time 21.4 Seconds (26.0-36.0)
[2016-11-07 19:25] LABS: Alanine Aminotransferase 10 Units/L (0-55); Alkaline Phosphatase 67 Units/L (38-126); Aspartate Amino Transferase 19 Units/L (5-34); BUN/Creatinine Ratio 28 (6-26); Bilirubin,Total 0.4 mg/dL (0.2-1.2); Blood Urea Nitrogen 22 mg/dL (7-20); Calcium 8.3 mg/dL (8.6-10.8); Carbon Dioxide 23 mEq/L (19-29); Chloride 106 mEq/L (98-109); Globulin 2.9 g/dL (2.4-3.5); Glucose 136 mg/dL (70-99); Osmolality,Calculated 295 (280-300); Potassium 3.8 mEq/L (3.5-4.5); Sodium 140 mEq/L (136-145); Total Protein 5.9 g/dL (6.0-8.3); eGFR For African Americans > 60 (> 60); eGFR For Non-African Americans > 60 (> 60)
[2016-11-07] MEDS ORDERED: Ondansetron 4 MG/2 ML VIAL IVP ONE (19:41)
--- NOTE | 2016-11-07 20:38 | Emergency Department Note ---
Disposition Clinical Impression: GI bleed Hematemesis Qualifiers: Nausea presence: unspecified Qualified Code(s): K92.0 - Hematemesis Disposition: Admitted As Inpatient Condition: Serious Time of Disposition: 20:40 GI Bleed HPI - General Chief complaint: ED GI Bleed Stated complaint: gi bleed Time Seen by Provider: 11/07/16 18:08 Source: patient, EMS Mode of arrival: ambulatory Limitations: no limitations Nursing Notes Reviewed: Yes Vital Signs Reviewed: Yes - Related Data Home Medications Medication Instructions Recorded Confirmed Acetaminophen [Tylenol] 500 mg PO Q6HR 11/02/16 11/02/16 Celecoxib [Celebrex] 100 mg PO BID 11/02/16 11/02/16 Cephalexin [Keflex] 500 mg PO BID 11/02/16 11/02/16 Fluphenazine HCl 1 mg PO Q4H PRN 11/02/16 11/02/16 Tramadol HCl [Ultram] 50 mg PO Q4H PRN 11/02/16 11/02/16 Previous Rx's Medication Instructions Recorded Amlodipine [Norvasc] 10 mg PO DAILY #30 tablet 11/04/16 Omeprazole [PriLOSEC] 40 mg PO BIDAC #120 capsule. 11/04/16 Sucralfate [Carafate] 1 gm PO QIDAC #120 tablet 11/04/16 Allergies Allergy/AdvReac Type Severity Reaction Status Date / Time No Known Allergies Allergy Verified 09/08/16 02:27 Constitutional: Reports: as per HPI. Denies: fever, chills, weakness Eyes: Reports: as per HPI ENT ED: Reports: as per HPI Cardiovascular: Reports: as per HPI. Denies: chest pain, palpitations Respiratory: Reports: as per HPI. Denies: cough, dyspnea, wheezes Gastrointestinal: Reports: as per HPI, abdominal pain, hematemesis. Denies: nausea, vomiting, diarrhea, constipation, melena, hematochezia Genitourinary: Reports: as per HPI. Denies: dysuria, frequency, hematuria Musculoskeletal: Reports: as per HPI. Denies: back pain, neck pain Integumentary: Reports: as per HPI. Denies: rash Neurological: Reports: as per HPI. Denies: headache, weakness, numbness, paresthesias, confusion Psychiatric: Reports: as per HPI Endocrine: Reports: as per HPI Hematological/Lymphatic: Reports: as per HPI Allergic/Immunologic: Reports: as per HPI Past Medical History - Past Medical History Medical history: Reports: dementia, GI bleed (4-5 yrs ago) Surgical history: Reports: orthopedic, other Psychiatric history: Reports: no psych history - Social History Smoking Status: Never smoker Smokeless Tobacco Status: No Alcohol use: Reports: none Drug use: Reports: none Physical Exam - General Limitations: no limitations General appearance: alert, in no apparent distress Course Course Narrative: 89-year-old female with GI bleed, gastric occult was positive, patient had episodes of hematemesis and mild tachycardia in the ED. I did speak with Dr. Lemons, after review hemoglobin was stable, please see Dr. Hicks and Dr. Rogers's note for further documentation on this patient as this was signed out was from the day team. Ultimately admitting the patient to [facility], I also spoke with Dr. Aguilar in consultation. He agrees with Protonix, trending H/H and reassess he will evaluate in the a.m. Consult place Vital Signs Temperature 98.1 F 11/07/16 18:09 Pulse Rate 93 11/07/16 18:09 Respiratory Rate 20 11/07/16 18:09 Blood Pressure 129/59 11/07/16 18:09 O2 Sat by Pulse Oximetry 96 11/07/16 18:09 Temperature 98.1 F 11/07/16 18:09 Pulse Rate 99 11/07/16 19:01 Respiratory Rate 20 11/07/16 20:38 Blood Pressure 112/69 11/07/16 20:38 O2 Sat by Pulse Oximetry 96 11/07/16 19:01 Oxygen Delivery Oxygen Delivery Room Air GI Bleed - Differential Diagnosis Likely: hemorrhoids, Lucinda-Dale syndrome, Upper gastrointestinal hemorrhage, Lower gastrointestinal hemorrhage - Lab Data Result diagrams: 11/07/16 18:56 11/07/16 18:56 Lab Results 11/07/16 11/07/16 11/07/16 Range/Units 18:56 18:56 18:56 WBC 10.2 (4.3-11.1) K/mcL RBC 3.82 (3.82-4.97) M/mcL Hgb 10.9 L (11.5-15.4) g/dL Hct 34.0 L (35.3-44.9) % MCV 89.0 (83.0-100.0) fL MCH 28.5 (28.0-33.3) pg MCHC 32.1 (31.6-35.5) g/dL RDW 13.6 (11.5-14.5) % Plt Count 354 (140-400) K/mcL MPV 10.3 (9.4-12.4) fL Immature Gran % 0.4 (0-4) % Seg Neutrophils % 81.3 % Lymphocytes % 12.4 % Monocytes % 5.6 % Eosinophils % 0.1 % Basophils % 0.2 % Neutrophils # 8.3 (1.6-8.9) K/mcL Lymphocytes # 1.3 (0.6-4.6) K/mcL Monocytes # 0.6 (0.0-1.3) K/mcL Eosinophils # 0.0 (0.0-0.6) K/mcL Basophils # 0.0 (0.0-0.2) K/mcL PT 11.0 (9.4-12.1) Seconds INR 1.0 APTT 21.4 L (26.0-36.0) Seconds Sodium 140 (136-145) mEq/L Potassium 3.8 (3.5-4.5) mEq/L Chloride 106 (98-109) mEq/L Carbon Dioxide 23 (19-29) mEq/L BUN 22 H (7-20) mg/dL Creatinine 0.79 (0.57-1.11) mg/dL Est GFR ( Amer) > 60 (> 60) Est GFR (Non-Af Amer) > 60 (> 60) BUN/Creatinine Ratio 28 H (6-26) Glucose 136 H (70-99) mg/dL Calculated Osmolality 295 (280-300) Calcium 8.3 L (8.6-10.8) mg/dL Total Bilirubin 0.4 (0.2-1.2) mg/dL AST 19 (5-34) Units/L ALT 10 (0-55) Units/L Alkaline Phosphatase 67 (38-126) Units/L Serum Total Protein 5.9 L (6.0-8.3) g/dL Albumin 3.0 L (3.5-5.0) g/dL Globulin 2.9 (2.4-3.5) g/dL Albumin/Globulin Ratio 1.0 L (1.1-2.2) Gastric Occult Blood (Negative) Blood Type Antibody Screen 11/07/16 11/07/16 Range/Units 18:56 20:00 WBC (4.3-11.1) K/mcL RBC (3.82-4.97) M/mcL Hgb (11.5-15.4) g/dL Hct (35.3-44.9) % MCV (83.0-100.0) fL MCH (28.0-33.3) pg MCHC (31.6-35.5) g/dL RDW (11.5-14.5) % Plt Count (140-400) K/mcL MPV (9.4-12.4) fL Immature Gran % (0-4) % Seg Neutrophils % % Lymphocytes % % Monocytes % % Eosinophils % % Basophils % % Neutrophils # (1.6-8.9) K/mcL Lymphocytes # (0.6-4.6) K/mcL Monocytes # (0.0-1.3) K/mcL Eosinophils # (0.0-0.6) K/mcL Basophils # (0.0-0.2) K/mcL PT (9.4-12.1) Seconds INR APTT (26.0-36.0) Seconds Sodium (136-145) mEq/L Potassium (3.5-4.5) mEq/L Chloride (98-109) mEq/L Carbon Dioxide (19-29) mEq/L BUN (7-20) mg/dL Creatinine (0.57-1.11) mg/dL Est GFR ( Amer) (> 60) Est GFR (Non-Af Amer) (> 60) BUN/Creatinine Ratio (6-26) Glucose (70-99) mg/dL Calculated Osmolality (280-300) Calcium (8.6-10.8) mg/dL Total Bilirubin (0.2-1.2) mg/dL AST (5-34) Units/L ALT (0-55) Units/L Alkaline Phosphatase (38-126) Units/L Serum Total Protein (6.0-8.3) g/dL Albumin (3.5-5.0) g/dL Globulin (2.4-3.5) g/dL Albumin/Globulin Ratio (1.1-2.2) Gastric Occult Blood Positive A (Negative) Blood Type O POSITIVE Antibody Screen NEGATIVE Attestation Statement - Attestation Attestation: I, Jose R Mays MD, personally performed a history and physical exam of the patient and discussed their management with the resident. I reviewed the resident's note and agree with the documented findings, medical decision making , and plan of care. This patient was signed out at shift change from Dr. Hicks and Dr. Hsieh. Please refer to their notes for complete details of the history and physical examination. At shift change the patient is waiting test results. Patient is an 89-year-old female who was just recently in the hospital and had upper endoscopy for upper GI bleeding approximately 5 days ago. She returns to the emergency department today with family reporting that she has had multiple episodes of dark emesis today. Patient is awake and alert but pleasantly confused. She states that she just threw up what she ate. She admits to some mid and epigastric abdominal discomfort. She did have an episode of vomiting here in the department which was black and sister with blood. On exam patient is an elderly female in no distress. She is awake and alert. No cyanosis or diaphoresis. Breath sounds equal bilaterally. Heart regular with a 3/6 systolic murmur. Abdomen is soft with mild epigastric tenderness. Bowel sounds present. Labs reviewed. The hospitalist, Dr. Lmeons, was consulted and accepted admission of the patient. Dr. Partida also discussed the case with databases computer consultant, Dr. Aguilar.
[2016-11-07] MEDS ORDERED: Acetaminophen 325 MG TABLET PO PRN (21:00)
[2016-11-07] MEDS ORDERED: Naloxone 0.4 MG/ML INJ IVP PRN (21:00)
[2016-11-07] MEDS ORDERED: traMADol 50 MG TABLET PO PRN (21:09)
--- NOTE | 2016-11-07 22:00 | Internal Med History&Physical ---
Date of Encounter: 11/07/16 Time of Encounter: 21:30 Assessment and Plan (1) Hematemesis Current visit: Yes Status: Acute Observation. Will treat with IV PPI. Keep nothing by mouth. Monitor her counts. Consult GI. Hemoglobin currently is 10.9. However her BUN is elevated suggesting that she may be hemoconcentrated. She will need transfusion if her hemoglobin drops further quickly. High risk for complications. Qualifiers: Nausea presence: with nausea Qualified Code(s): K92.0 - Hematemesis; R11.0 - Nausea (2) Hypertension Current visit: Yes Status: Chronic Monitor blood pressure. Resume home medications as tolerated. Qualifiers: Hypertension type: essential hypertension Qualified Code(s): I10 - Essential (primary) hypertension (3) Upper GI bleed Current visit: No Status: Acute Recurrent upper GI bleed. Consult GI. Monitor hemoglobin counts. (4) GERD (gastroesophageal reflux disease) Current visit: Yes Status: Chronic Continue PPI and Carafate. Qualifiers: Esophagitis presence: esophagitis presence not specified Qualified Code(s) : K21.9 - Gastro-esophageal reflux disease without esophagitis (5) Anemia Current visit: Yes Status: Acute Anemia due to GI bleed. Monitor H&H. Transfuse if drops quickly. Or <8. Qualifiers: Anemia type: other cause Other causes of anemia: acute posthemorrhagic Qualified Code(s): D62 - Acute posthemorrhagic anemia Internal Medicine - H&P: HPI Chief complaint: Vomiting and hematemesis Admitted From: Emergency Dept Plans for Post Hospital Care: Transfer Longterm Facility History of present illness: Ms. Honeycutt is a 89 year old female with history of gastroesophageal reflux disease, hiatal hernia, recent hip fracture status post surgery who was just discharged from the hospital after a stay for upper GI bleed presented to the ER from the correction with complaints of abdominal pain, nausea and vomiting with hematemesis. Her symptoms have been going on since yesterday. Pain is located in the epigastric region. Patient also has a lack of appetite. No chest pain or palpitations. During her last hospital stay, she underwent upper GI endoscopy which showed a large hiatal hernia and there were visible vessels with no bleeding in the gastric body which were clipped to prevent future bleeding although there was no active bleeding. She also had a large diverticulum in her lower esophagus. Nicki had remained symptom-free until yesterday. She was discharged on 2016 Past Med Surg Social Fam HX - Past Medical History Medical history: dementia, GI bleed Psychiatric history: no psych history - Past Surgical History Surgical History: orthopedic, other - Social History Smoking Status: Never smoker Smokeless Tobacco Status: No Alcohol use: none Drug use: none - Additional Family History Additional family history: Reviewed and found noncontributory at this time Internal Medicine - H&P: Meds Acetaminophen [Tylenol] 500 mg PO Q6HR 11/02/16 [History] Celecoxib [Celebrex] 100 mg PO BID 11/02/16 [History] Cephalexin [Keflex] 500 mg PO BID 11/02/16 [History] Fluphenazine HCl 1 mg PO Q4H PRN 11/02/16 [History] Tramadol HCl [Ultram] 50 mg PO Q4H PRN 11/02/16 [History] Amlodipine [Norvasc] 10 mg PO DAILY #30 tablet 11/04/16 [Rx] Omeprazole [PriLOSEC] 40 mg PO BIDAC #120 capsule. 11/04/16 [Rx] Sucralfate [Carafate] 1 gm PO QIDAC #120 tablet 11/04/16 [Rx] Allergies No Known Allergies Allergy (Verified 09/08/16 02:27) All Systems PM: A 10-system review of systems was performed and is negative for pertinent findings except as documented above in the HPI. - Constitutional Constitutional: anorexia, fatigue, malaise, no chills, no fever(s), no night sweats - EENT Eyes: no change in vision, no discharge, no pain, no photophobia Ears: no ear discharge, no ear pain, no tinnitus Nose, mouth and throat: no dysphagia, no nasal discharge, no neck pain, no sore throat - Cardiovascular Cardiovascular ROS IM: no chest pain, no diaphoresis, no dyspnea, no lightheadedness, no palpitations, no syncope - Respiratory Respiratory: no cough, no dyspnea, no wheezing, no excessive phlegm production - Gastrointestinal Gastrointestinal: abdominal pain, hematemesis, nausea, vomiting, no diarrhea, no hematochezia, no melena - Genitourinary Genitourinary: no change in urinary stream, no dysuria, no flank pain, no hematuria - Musculoskeletal Musculoskeletal ROS IM: no numbness, no tingling - Integumentary Integumentary IM: no rash, no unusual bruising - Neurological Neurological ROS: no confusion, no convulsions, no focal weakness, no numbness, no tingling, no tremor(s) - Hematologic/Lymphatic Hematologic/Lymphatic: no easy bruising - Constitutional Vitals: Temp Pulse Resp BP Pulse Ox 98.6 F 100 15 144/88 96 11/07/16 21:18 11/07/16 21:18 11/07/16 21:18 11/07/16 21:18 11/07/16 21:18 General appearance: Present: cooperative, A&O X 2, mild distress Exam: Moderate distress - Eye Eye exam: Present: EOMI, PERRL, conjuntiva pink, sclera anicteric - Neck Neck exam general surgery: Present: supple, trachea midline. Absent: lymphadenopathy - Respiratory Respiratory exam: Present: CTAB. Absent: accessory muscle use, rales, rhonchi, wheezes - Cardiovascular Cardiovascular exam: Present: RRR, +S1, +S2. Absent: diastolic murmur, gallop, rubs, systolic murmur - GI/Abdominal GI/Abdominal exam: Present: normal bowel sounds, soft, tenderness (Epigastric), no peritoneal signs. Absent: distended - Extremities Exam Extremities exam: Present: warm, radial pulses palpable and symetrical. Absent : calf tenderness, cyanotic, pedal edema - Neurological Exam Neurological exam: Present: alert, oriented X3, no focal deficits. Absent: facial droop, speech deficit - Psychiatric Psychiatric exam: Present: normal affect - Skin Skin exam: Present: dry, intact, pallor Internal Med - H&P Results - Labs CBC & Chem 7: 11/07/16 18:56 11/07/16 18:56 - Attending Attestation This document has been at least partially created by [employer] recognition technology by Dr. Blackwell. Errors in grammar, wording or other phrases may exist. If errors are found after the documentation is signed, they will be addressed individually in the addendum section of this document when appropriate.
[2016-11-07] MEDS: Sucralfate 1 GM TABLET PO SCH (22:13)
[2016-11-08 01:20] LABS: Basophils % 0.1 %; Hematocrit 32.1 % (35.3-44.9); Hemoglobin 10.4 g/dL (11.5-15.4); Immature Granulocytes % 0.5 % (0-4); Lymphocytes # 0.8 K/mcL (0.6-4.6); Lymphocytes % 7.6 %; Mean Corpuscular HGB Conc 32.4 g/dL (31.6-35.5); Mean Corpuscular Hemoglobin 28.8 pg (28.0-33.3); Mean Corpuscular Volume 88.9 fL (83.0-100.0); Mean Platelet Volume 10.5 fL (9.4-12.4); Monocytes # 0.5 K/mcL (0.0-1.3); Monocytes % 4.5 %; Neutrophils # 9.6 K/mcL (1.6-8.9); Platelet Count 365 K/mcL (140-400); Red Blood Count 3.61 M/mcL (3.82-4.97); Red Cell Distribution Width 13.6 % (11.5-14.5); Segmented Neutrophils % 87.3 %
[2016-11-08 01:28] LABS: BUN/Creatinine Ratio 29 (6-26); Blood Urea Nitrogen 27 mg/dL (7-20); Calcium 8.9 mg/dL (8.6-10.8); Carbon Dioxide 23 mEq/L (19-29); Chloride 104 mEq/L (98-109); Glucose 191 mg/dL (70-99); Osmolality,Calculated 302 (280-300); Potassium 3.9 mEq/L (3.5-4.5); Sodium 141 mEq/L (136-145); eGFR For African Americans > 60 (> 60); eGFR For Non-African Americans 57 (> 60)
[2016-11-08] MEDS: 0.9 % Sodium Chloride 1,000 ML IVC SCH ×2 (03:46→15:42)
[2016-11-08] MEDS ORDERED: Ondansetron 4 MG/2 ML VIAL ONE (03:56)
[2016-11-08] MEDS: Ondansetron 4 MG/2 ML VIAL IVP PRN (04:00)
[2016-11-08] MEDS: Pantoprazole 40 MG VIAL IVP SCH ×2 (06:07→17:26)
[2016-11-08] MEDS: amLODIPine 5 MG TABLET PO SCH (08:52)
[2016-11-08] MEDS: Sucralfate 1 GM TABLET PO SCH ×4 (08:52→20:21)
[2016-11-08 09:12] LABS: Hematocrit 30.8 % (35.3-44.9); Hemoglobin 9.7 g/dL (11.5-15.4)
--- NOTE | 2016-11-08 11:31 | Internal Med Progress Note ---
Date of Encounter: 11/08/16 Time of Encounter: 11:28 - Assessment and plan (1) Upper GI bleed Current Visit: No Status: Acute Assessment and plan: Pt recently underwent EGD a week ago which showed large hiatal hernia with 2 localized spots with visible vessels with no bleeding and clips were placed Admitted for recurrent hemetemeis reports of epigastric pain continue PPI NPO at this time awaiting GI consultation, NPO until cleared by GI No recurrent bleeding episodes reported since hospitalization H&H low but acceptable will continue to closely monitor will transfuse as needed. (2) Hematemesis Current Visit: Yes Status: Acute Assessment and plan: as listed above Qualifiers: Nausea presence: with nausea Qualified Code(s): K92.0 - Hematemesis; R11.0 - Nausea (3) Anemia Current Visit: Yes Status: Chronic Assessment and plan: History anemia worsened with acute GI bleed will continue to monitor Qualifiers: Anemia type: other cause Other causes of anemia: acute posthemorrhagic Qualified Code(s): D62 - Acute posthemorrhagic anemia (4) GERD (gastroesophageal reflux disease) Current Visit: Yes Status: Chronic Assessment and plan: continue PPI Qualifiers: Esophagitis presence: esophagitis presence not specified Qualified Code(s) : K21.9 - Gastro-esophageal reflux disease without esophagitis (5) Hypertension Current Visit: Yes Status: Chronic Assessment and plan: BP within acceptable range continue Amlodipine at this time Qualifiers: Hypertension type: essential hypertension Qualified Code(s): I10 - Essential (primary) hypertension (6) DVT prophylaxis Current Visit: Yes Status: Acute Assessment and plan: IPCD - Subjective Interval history: Patient seen and examined with daughter (POA) present at bedside. Patient has dementia and her mental status waxes and wanes and at baseline she is AAO x 1 ( to self and family) however patient intermittently has episodes of clarity. At this time patient is at baseline mental status. No hemetemesis reported since hospitalization. GI consultation requested. - Constitutional Vitals: Temp Pulse Resp BP Pulse Ox 98.5 F 94 18 133/61 96 11/08/16 11:19 11/08/16 11:19 11/08/16 11:19 11/08/16 11:19 11/08/16 11:19 General appearance: Present: cooperative, A&O X 1, no acute distress - Head Head exam: Present: atraumatic, normocephalic - Eye Eye exam: Present: normal appearance, conjuntiva pink, sclera anicteric - Respiratory Respiratory exam: Present: CTAB. Absent: respiratory distress, wheezes - GI/Abdominal GI/Abdominal exam: Present: normal bowel sounds, soft, tenderness (epigastric tenderness), no peritoneal signs. Absent: distended, guarding, rebound - Extremities Exam Extremities exam: Present: pedal edema, warm, radial pulses palpable and symetrical. Absent: calf tenderness - Neurological Exam Neurological exam: Present: alert, no focal deficits - Psychiatric Psychiatric exam: Present: normal affect, normal mood Internal Medicine: Result - Labs CBC & Chem 7: 11/08/16 08:38 11/08/16 00:49 Labs: Short CBC 11/08/16 11/08/16 Range/Units 00:49 08:38 WBC 11.0 (4.3-11.1) K/mcL Hgb 10.4 L 9.7 L (11.5-15.4) g/dL Hct 32.1 L 30.8 L (35.3-44.9) % Plt Count 365 (140-400) K/mcL Neutrophils # 9.6 H (1.6-8.9) K/mcL BMP 11/08/16 00:49 Sodium 141 Potassium 3.9 Chloride 104 Carbon Dioxide 23 BUN 27 H Creatinine 0.92 Glucose 191 H Calcium 8.9 - ABG Interpretation ABG results: PT/INR, D-dimer PT 11.0 Seconds (9.4-12.1) 11/07/16 18:56 Consult Discharge Plan - Plan Referrals: Librado Bennett MD [Primary Care Provider] - (SENT WEB REQUEST ON 11-08-16 @ [id number])
--- NOTE | 2016-11-08 11:47 | Gastroenterology Consult Note ---
<Hu Fam - Last Filed: 11/08/16 11:45> Date of Encounter: 11/08/16 Time of Encounter: 10:20 - Assessment and plan (1) GI bleed Current Visit: Yes Status: Acute Assessment and plan: EGD 11/03/2016 with large hiatal hernia, 2 localized spots with visible vessels with no bleeding but stigmata of recent bleeding, clips were placed. Will repeat EGD today to r/o esophagitis, gastritis, duodenitis, PUD, MW tear, or AVM. Keep NPO. Qualifiers: GI bleed type/associated pathology: gastrointestinal hemorrhage with hematemesis Qualified Code(s): K92.0 - Hematemesis (2) Hematemesis Current Visit: Yes Status: Acute Assessment and plan: Secondary to GI bleed. Plan for EGD today. Qualifiers: Nausea presence: with nausea Qualified Code(s): K92.0 - Hematemesis; R11.0 - Nausea (3) Anemia Current Visit: Yes Status: Chronic Assessment and plan: Secondary to GI bleed. Continue to monitor CBC and transfuse PRBC as needed. Qualifiers: Anemia type: other cause Other causes of anemia: acute posthemorrhagic Qualified Code(s): D62 - Acute posthemorrhagic anemia (4) GERD (gastroesophageal reflux disease) Current Visit: Yes Status: Chronic Assessment and plan: Continue 4 times a day Carafate and twice a day PPI. Qualifiers: Esophagitis presence: esophagitis presence not specified Qualified Code(s) : K21.9 - Gastro-esophageal reflux disease without esophagitis - Time Spent With Patient Total time spent is greater than 50% in coordination of care (as documented) at patient's floor/unit and/or counseling patient: GI History of Present Illness - Data of Consult Patient: known to practice within the last 3 years Consult date: 11/08/16 Requesting Physician: Alexi Estevez - Consult Narrative Reason for consult: GI bleed History of present illness: Ms. Honeycutt is a 89 year old female with PMHx of dementia, GERD, recent right hip fx, and GI bleed 4-5 years ago. She was hospitalized on 11/02/2016 with upper GI bleeding and EGD was completed with clips placed on 2 spots with visible vessels. She was discharged on Carafate 3 times a day for one month, twice a day PPI 2 weeks then daily for 2 months. She presented to the ED with midepigastric abdominal pain, nausea, vomiting, and 4-5 episodes of hematemesis , that started the day before admission. Hgb on admission was 10.9 and this AM Hgb 10.4. She denies fevers, chills, chest pain, SOB, or weakness. Procedures: EGD 11/03/2016 with large hiatal hernia, 2 localized spots with visible vessels with no bleeding but stigmata of recent bleeding, clips were placed. NSAIDs: None Anticoagulation: None Past Med Surg Social Fam HX - Past Medical History Medical history: dementia, GI bleed Psychiatric history: no psych history - Past Surgical History Surgical History: orthopedic, other - Social History Smoking Status: Never smoker Smokeless Tobacco Status: No Alcohol use: none Drug use: none - Gastrointestinal Gastrointestinal: Present: as per HPI - Constitutional Constitutional: as per HPI - EENT Eyes: as per HPI Ears: Present: as per HPI Nose, mouth and throat: Present: as per HPI - Cardiovascular Cardiovascular ROS: Present: as per HPI - Respiratory Respiratory IM: Present: as per HPI - Genitourinary Genitourinary: Absent: change in color, Urinary frequency - Neurological ROS Neurological GI: Present: as per HPI - Hematologic/Lymphatic Hematologic/Lymphatic pediatric: Present: as per HPI - Musculoskeletal Musculoskeletal ROS GI: Present: as per HPI - Integumentary Integumentary GI: Present: as per HPI - Psychiatric ROS Psychiatric GI: Present: as per HPI - Endocrine Endocrine IM: Present: as per HPI - Constitutional Vitals: Temp Pulse Resp BP Pulse Ox 98.5 F 94 18 133/61 96 11/08/16 11:19 11/08/16 11:19 11/08/16 11:19 11/08/16 11:19 11/08/16 11:19 General appearance: Present: cooperative, A&O X 3, no acute distress, answers questions appropriately - Head Head exam: Present: atraumatic, normocephalic - Eye Eye exam: Present: normal appearance, sclera anicteric - ENT ENT exam: Present: mucous membranes dry - Neck Neck exam general surgery: Present: normal inspection, trachea midline - Respiratory Respiratory exam: Present: CTAB. Absent: rales, rhonchi - Cardiovascular Cardiovascular exam: Present: RRR, +S1, +S2 - GI/Abdominal GI/Abdominal exam: Present: soft, no peritoneal signs. Absent: distended, firm , guarding, tenderness - Rectal Rectal exam: Present: deferred - Extremities Exam Extremities exam: Present: warm - Neurological Exam Neurological exam: Present: no focal deficits - Psychiatric Psychiatric exam: Present: normal affect, normal mood - Skin Skin exam: Present: dry, intact, normal color, warm Results - Labs CBC & Chem 7: 11/08/16 08:38 11/08/16 00:49 Labs: Last Result Calcium 8.9 mg/dL (8.6-10.8) 11/08/16 00:49 Gastric Occult Blood Positive (Negative) A 11/07/16 20:00 Entire Visit Hgb 9.7 g/dL (11.5-15.4) L 11/08/16 08:38 Hct 30.8 % (35.3-44.9) L 11/08/16 08:38 PT 11.0 Seconds (9.4-12.1) 11/07/16 18:56 Total Bilirubin 0.4 mg/dL (0.2-1.2) 11/07/16 18:56 AST 19 Units/L (5-34) 11/07/16 18:56 ALT 10 Units/L (0-55) 11/07/16 18:56 - ABG ABG results: PT/INR, D-dimer PT 11.0 Seconds (9.4-12.1) 11/07/16 18:56 Consult Discharge Plan - Plan Referrals: Librado Bennett MD [Primary Care Provider] - (SENT WEB REQUEST ON 11-08-16 @ [id number]) <Tonia Aguilar - Last Filed: 11/08/16 20:35> Time of Encounter: 19:00 - Time Spent With Patient Total time spent is greater than 50% in coordination of care (as documented) at patient's floor/unit and/or counseling patient: GI History of Present Illness - Data of Consult Requesting Physician: Alexi Estevez - Consult Narrative History of present illness: Ms. Honeycutt is a 89 year old female - Constitutional Vitals: Temp Pulse Resp BP Pulse Ox 98.0 F 106 16 126/61 96 11/08/16 20:09 11/08/16 20:09 11/08/16 20:09 11/08/16 20:09 11/08/16 20:09 Results - Labs CBC & Chem 7: 11/08/16 18:38 11/08/16 00:49 Labs: Last Result Calcium 8.9 mg/dL (8.6-10.8) 11/08/16 00:49 Gastric Occult Blood Positive (Negative) A 11/07/16 20:00 Entire Visit Hgb 9.2 g/dL (11.5-15.4) L 11/08/16 18:38 Hct 29.7 % (35.3-44.9) L 11/08/16 18:38 PT 11.0 Seconds (9.4-12.1) 11/07/16 18:56 Total Bilirubin 0.4 mg/dL (0.2-1.2) 11/07/16 18:56 AST 19 Units/L (5-34) 11/07/16 18:56 ALT 10 Units/L (0-55) 11/07/16 18:56 - ABG ABG results: PT/INR, D-dimer PT 11.0 Seconds (9.4-12.1) 11/07/16 18:56 - Attending Attestation I examined this patient and my medical decision-making was reviewed with the TOOL MACHINE SETUP OPERATOR/PA/Advanced Practice Nurse/Resident Physician. I agree with the documented findings, disposition and treatment plan as described except to the extent set forth below.
[2016-11-08 13:01] LABS: Hematocrit 30.3 % (35.3-44.9); Hemoglobin 9.2 g/dL (11.5-15.4)
--- NOTE | 2016-11-08 17:01 | Electrocardiograph Report ---
[address] [address] Test Date: 2016-11-07 Pat Name: Ginger Honeycutt Department: [id number] Room: 2N09 Gender: F Assembling Fabricator: : [id number] Requested By: Roger Hicks Order Number: [id number] Reading MD: Chandu Flaherty Measurements Intervals [place] Rate: 96 P: 45 MA: 129 QRS: -46 QRSD: 130 T: 136 QT: 369 QTc: 422 Interpretive Statements SINUS RHYTHM WITH OCCASIONAL SUPRAVENTRICULAR PREMATURE COMPLEXES MARKED LEFT AXIS DEVIATION LEFT BUNDLE BRANCH BLOCK Electronically Signed On 11-08-2016 17:00:20 EST by Chandu Flaherty
[2016-11-08 18:50] LABS: Hematocrit 29.7 % (35.3-44.9); Hemoglobin 9.2 g/dL (11.5-15.4)
[2016-11-08] MEDS ORDERED: *HR* LORazepam 2 MG/ML VIAL IVP PRN (23:30)
[2016-11-09] MEDS: Ondansetron 4 MG/2 ML VIAL IVP PRN (00:35)
[2016-11-09] MEDS: Pantoprazole 40 MG VIAL IVP SCH (06:09)
[2016-11-09] MEDS ORDERED: *HR* Midazolam HCl 5 MG/5 ML VIAL IVP ONE (07:30)
[2016-11-09] MEDS ORDERED: *HR* FentaNYL (PF) 100 MCG/2 ML VIAL ONE (07:30)
--- NOTE | 2016-11-09 07:41 | Pre-Sedation Evaluation ---
Pre-sedation evaluation - Pre-sedation checklist Date of procedure: 11/08/16 Procedure: EGD Recent Vitals: Last Vital Signs Temp 97.8 F 11/09/16 06:54 Pulse 96 11/09/16 06:54 Resp 18 11/09/16 06:54 BP 141/74 11/09/16 06:54 Pulse Ox 92 L 11/09/16 06:54 H&P (including ROS) documented in medical record: Yes Previous reaction to sedatives/anesthetics: No Dietary Status: NPO after Midnight Dentition: dentures removed ASA Classification *see protocol: CLASS III-Severe systemic disease Plan of Care: Pt appropriate candidate for procedure/moderate/conscious sedation , Risks/benefits of procedure/sedation discussed w/ patient/family
--- NOTE | 2016-11-09 08:17 | Anesthesia Evaluation PreOp ---
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 11/04/16 [Rx] Sucralfate [Carafate] 1 gm PO QIDAC #120 tablet 11/04/16 [Rx] Ferrous Sulfate [Iron] 325 mg PO DAILY 11/08/16 [History] Allergies No Known Allergies Allergy (Verified 09/08/16 02:27) - Meds/Allergy Pre-op Review Medications Reviewed: Yes Allergies Reviewed: Yes Beta Blockers on Current Med List: No Anesthesia Results - Labs 11/08/16 18:38 11/08/16 00:49 Anesthesia Exam O2 Sat Weight 56.3 kg O2 Sat by Pulse Oximetry 84 O2 Sat by Pulse Oximetry 86 O2 Sat by Pulse Oximetry 88 O2 Sat by Pulse Oximetry 90 O2 Sat by Pulse Oximetry 97 O2 Sat by Pulse Oximetry 92 O2 Sat by Pulse Oximetry 93 O2 Sat by Pulse Oximetry 93 O2 Sat by Pulse Oximetry 94 O2 Sat by Pulse Oximetry 94 O2 Sat by Pulse Oximetry 96 O2 Sat by Pulse Oximetry 96 O2 Sat by Pulse Oximetry 96 O2 Sat by Pulse Oximetry 94 O2 Sat by Pulse Oximetry 96 O2 Sat by Pulse Oximetry 97 O2 Sat by Pulse Oximetry 96 O2 Sat by Pulse Oximetry 95 Vital Signs Temp Pulse Resp BP Pulse Ox 98.1 F 93 20 129/59 96 11/07/16 18:09 11/07/16 18:09 11/07/16 18:09 11/07/16 18:09 11/07/16 18:09 Height: 5'0 Weight: 124 lbs NPO (# of Hours): MN - HEENT Pupil (Motor): Pupils equal, EOMI Mallampati: III Teeth: Edentulous Oral Opening: Less than or equal to 3 - [employer]ITION ASSEMBLY II LABORER LOC: Confused [employer]ITION ASSEM[employer]Y II LABORER Motor: Normal RUE, Normal LUE, Normal RLE, Normal LLE, Normal Face [employer]ITION ASSEM[employer]Y II LABORER Sensory: Normal: RUE, LUE, RLE, LLE, Face - Cardiac Rhythm: Regular JVD: No Carotid Bruit: No - Pulmonary Breath Sounds: bilateral Clear Respiratory Effort: Symmetrical Anesthesia Assess/Plan ASA Score: 4 (HTN Anemia Upper GI Bleed, Demention) Anesthetic Plan: General Monitoring Plan: Standard Monitors (Discussed GA with family)
[2016-11-09] MEDS ORDERED: *HR* Propofol 200 MG/20 ML VIAL IVP ONE (09:43)
[2016-11-09] MEDS ORDERED: *HR* Succinylcholine 200 MG/10 ML VIAL IVP ONE (09:43)
[2016-11-09] MEDS ORDERED: *HR* Phenylephrine 10 MG/ML VIAL IVC ONE (09:43)
--- NOTE | 2016-11-09 09:57 | Anesthesia Progress Note ---
Date of Encounter: 11/09/16 Time of Encounter: 08:00 Anesthesia Note - Note Note: 11/09/16 09:54 Called emergently to GI suite. Patient was undergoing EGD for hematemesis, copious amount gastric contents vomitted. Patient was demented and received sedation, decision was made to emergently intubate to protect airway. Discussed with family members and they agreed to have anesthesia involved.
[2016-11-09] MEDS ORDERED: *HR* Midazolam HCl 2 MG/2 ML VIAL ONE (10:01)
--- NOTE | 2016-11-09 10:43 | General Surgery Consult Note ---
<Penelope Priest - Last Filed: 11/09/16 12:44> Date of Encounter: 11/09/16 Time of Encounter: 10:00 Assessment and Plan (1) Gastric outlet obstruction Current Visit: Yes Status: Acute UGI to evaluate for gastric volvulus Contrast via NG tube (2) Gastric volvulus Current Visit: Yes Status: Acute NPO and NG tube to LIWS IV fluids CT scan of chest/abdomen/pelvis with IV contrast now to further evaluate Supportive care/pain control (3) Hematemesis Current Visit: Yes Status: Acute Continue to monitor Hgb 10.9>9.[address] Aguilar was unsuccessful Qualifiers: Nausea presence: with nausea Qualified Code(s): K92.0 - Hematemesis; R11.0 - Nausea (4) Anemia Current Visit: Yes Status: Chronic Continue to monitor Hgb 10.9>9.2 Qualifiers: Anemia type: other cause Other causes of anemia: acute posthemorrhagic Qualified Code(s): D62 - Acute posthemorrhagic anemia (5) GERD (gastroesophageal reflux disease) Current Visit: Yes Status: Chronic Continue PPI BID Hold carafate due to suspected volvulus Qualifiers: Esophagitis presence: esophagitis presence not specified Qualified Code(s) : K21.9 - Gastro-esophageal reflux disease without esophagitis (6) Hypertension Current Visit: Yes Status: Chronic Monitor blood pressure. Management per medicine service Qualifiers: Hypertension type: essential hypertension Qualified Code(s): I10 - Essential (primary) hypertension (7) Dementia Current Visit: No Status: Chronic Qualifiers: Dementia type: unspecified type Dementia behavioral disturbance: with behavioral disturbance Qualified Code(s): F03.91 - Unspecified dementia with behavioral disturbance (8) Acute respiratory failure Current Visit: Yes Status: Acute Management per pulmonary/critical care patient on ventilator support Qualifiers: Respiratory failure complication: unspecified whether with hypoxia or hypercapnia Qualified Code(s): J96.00 - Acute respiratory failure, unspecified whether with hypoxia or hypercapnia History of Present Illness Consult date: 11/09/16 Reason for consult: other (gastris volvulus) Requesting physician: Tonia Aguilar History of present illness: Mrs. Honeycutt is an 89 year old female who is s/p attempted EGD with Dr. Aguilar this morning. She is currently intubated and in the intensive care unit. The information has been obtained from the medical record as the patient is sedated and unable to answer any questions. She presented to the hospital from [facility] with complaints of epigastric abdominal pain with associated nausea/vomiting. Hematemesis was reported. Her hgb was noted to be 10.9 Dr. Aguilar was consulted for endoscopy evaluation. The patient did have an EGD complete 11/03/[address] Aguilar during a previous admission. There was no evidence of active bleeding at that time. Clips were placed where there was evidence of previous bleeding. She did have a large hiatal hernia. He did attempt repeat EGD this morning but was unable to pass the scope through due to suspected volvulus. We have been asked to see and evaluate the patient for recommendations. Past Med Surg Social Fam HX - Past Medical History Source: old records reviewed Medical history: dementia, GERD, GI bleed, hypertension, other (anemia) Psychiatric history: no psych history - Past Surgical History Surgical History: orthopedic, other (Right hip (partial secondary to fracture); EGD X 2) - Social History Smoking Status: Never smoker Smokeless Tobacco Status: No Alcohol use: none Drug use: none Current living situation: [facility] Medications and Allergies Acetaminophen [Tylenol] 500 mg PO Q6HR PRN 11/02/16 [History] Celecoxib [Celebrex] 100 mg PO BID 11/02/16 [History] Fluphenazine HCl 1 mg PO Q4H PRN 11/02/16 [History] Tramadol HCl [Ultram] 50 mg PO Q4H PRN 11/02/16 [History] Amlodipine [Norvasc] 10 mg PO DAILY #30 tablet 11/04/16 [Rx] Omeprazole [PriLOSEC] 40 mg PO BIDAC #120 capsule. 11/04/16 [Rx] Sucralfate [Carafate] 1 gm PO QIDAC #120 tablet 11/04/16 [Rx] Ferrous Sulfate [Iron] 325 mg PO DAILY 11/08/16 [History] Allergies No Known Allergies Allergy (Verified 09/08/16 02:27) Review of Systems ROS unobtainable: due to endotracheal tube All systems PM: A 10-system review of systems was performed and is negative for pertinent findings except as documented above in the HPI. General Surgery Exam Initial Vital Signs Temp Pulse Resp BP Pulse Ox 98.1 F 93 20 129/59 96 11/07/16 18:09 11/07/16 18:09 11/07/16 18:09 11/07/16 18:09 11/07/16 18:09 - General physical appearance no distress - Eyes PERRL - ENT normal mucosa, atraumatic, normocephalic - Neck trachea midline - Respiratory clear to auscultation, other (ventilator support with 80% FiO2 saturating 100%, PEEP 5) - Cardiovascular Cardiovascular exam: Present: RRR - Abdomen Abdomen general surgery: Present: soft, tender (patient grimaced with palpation of upper abdomen), wound (NG tube to LIWS) - Genitourinary Present: other - Integumentary Integumentary general surgery: Present: warm and dry - Neurologic Present: other (moving all extremities) - Psychiatric Psychiatric general surgery: Present: other (Unable to assess) Exam Initial Vital Signs Temp Pulse Resp BP Pulse Ox 98.1 F 93 20 129/59 96 11/07/16 18:09 11/07/16 18:09 11/07/16 18:09 11/07/16 18:09 11/07/16 18:09 Results - Labs 11/09/16 11:09 11/09/16 11:09 Abnormal lab results RBC 3.61 M/mcL (3.82-4.97) L 11/08/16 00:49 Hgb 9.2 g/dL (11.5-15.4) L 11/08/16 18:38 Hct 29.7 % (35.3-44.9) L 11/08/16 18:38 Neutrophils # 9.6 K/mcL (1.6-8.9) H 11/08/16 00:49 APTT 21.4 Seconds (26.0-36.0) L 11/07/16 18:56 BUN 27 mg/dL (7-20) H 11/08/16 00:49 Est GFR (Non-Af Amer) 57 (> 60) L 11/08/16 00:49 BUN/Creatinine Ratio 29 (6-26) H 11/08/16 00:49 Glucose 191 mg/dL (70-99) H 11/08/16 00:49 Calculated Osmolality 302 (280-300) H 11/08/16 00:49 Serum Total Protein 5.9 g/dL (6.0-8.3) L 11/07/16 18:56 Albumin 3.0 g/dL (3.5-5.0) L 11/07/16 18:56 Albumin/Globulin Ratio 1.0 (1.1-2.2) L 11/07/16 18:56 Gastric Occult Blood Positive (Negative) A 11/07/16 20:00 All other labs normal. Consult Discharge Plan - Plan Referrals: Librado Bennett MD [Primary Care Provider] - (SENT WEB REQUEST ON 11-08-16 @ [id number]) - Attending Attestation I examined this patient and my medical decision-making was reviewed with the [facility] [employer]ATION/PA/Advanced Practice Nurse/Resident Physician. I agree with the documented findings, disposition and treatment plan as described except to the extent set forth below. <Blanka Griffiths - Last Filed: 11/10/16 06:55> Time of Encounter: 16:30 Assessment and Plan (1) Hiatal hernia Current Visit: Yes Status: Acute patient with large hiatal hernia, concerned for volvulus and gastric outlet obstruction, family already spoken with CCM and hospice and desire no surgical intervention. Family had no questions for us. (2) Gastric outlet obstruction Current Visit: Yes Status: Acute UGI to evaluate for gastric volvulus Contrast via NG tube (3) Gastric volvulus Current Visit: Yes Status: Acute NPO and NG tube to LIWS IV fluids CT scan of chest/abdomen/pelvis with IV contrast now to further evaluate Supportive care/pain control (4) Hematemesis Current Visit: Yes Status: Acute Continue to monitor Hgb 10.9>9.[address] Aguilar was unsuccessful Qualifiers: Nausea presence: with nausea Qualified Code(s): K92.0 - Hematemesis; R11.0 - Nausea History of Present Illness History of present illness: GI concerned regarding volvulus of large hiatal hernia as unable to pass scope through pylorus and patient had large volume fluid in stomach (~2L reported). Patient intubated and sedated on vent. Family present state they are making her comfort care and want no surgical intervention Review of Systems All systems PM: A 10-system review of systems was performed and is negative for pertinent findings except as documented above in the HPI. General Surgery Exam Initial Vital Signs Temp Pulse Resp BP Pulse Ox 98.1 F 93 20 129/59 96 11/07/16 18:09 11/07/16 18:09 11/07/16 18:09 11/07/16 18:09 11/07/16 18:09 - Abdomen Abdomen general surgery: Present: bowel sounds present, soft. Absent: tender Exam Initial Vital Signs Temp Pulse Resp BP Pulse Ox 98.1 F 93 20 129/59 96 11/07/16 18:09 11/07/16 18:09 11/07/16 18:09 11/07/16 18:09 11/07/16 18:09 Results - Labs 11/09/16 14:54 11/09/16 11:09 Abnormal lab results WBC 15.3 K/mcL (4.3-11.1) H 11/09/16 11:09 RBC 3.13 M/mcL (3.82-4.97) L 11/09/16 11:09 Hgb 7.0 g/dL (11.5-15.4) L D 11/09/16 14:54 Hct 22.0 % (35.3-44.9) L 11/09/16 14:54 MCH 27.8 pg (28.0-33.3) L 11/09/16 11:09 MCHC 30.7 g/dL (31.6-35.5) L 11/09/16 11:09 Neutrophils # 12.5 K/mcL (1.6-8.9) H 11/09/16 11:09 APTT 21.4 Seconds (26.0-36.0) L 11/07/16 18:56 ABG pH 7.50 pH Units (7.32-7.45) H 11/09/16 12:00 ABG pO2 360 mmHg (85-104) H 11/09/16 12:00 ABG HCO3 31.2 mEQ/L (21-27) H 11/09/16 12:00 ABG Total CO2 32.4 mEq/L (20-26) H 11/09/16 12:00 ABG O2 Saturation 100 % (95-98) H 11/09/16 12:00 ABG Base Excess 7.4 mEq/L (-2.0 to 3.0) H 11/09/16 12:00 Sodium 146 mEq/L (136-145) H 11/09/16 11:09 Potassium 3.2 mEq/L (3.5-4.5) L 11/09/16 11:09 BUN 42 mg/dL (7-20) H D 11/09/16 11:09 Creatinine 1.14 mg/dL (0.57-1.11) H 11/09/16 11:09 Est GFR ( Amer) 54 (> 60) L 11/09/16 11:09 Est GFR (Non-Af Amer) 45 (> 60) L 11/09/16 11:09 BUN/Creatinine Ratio 37 (6-26) H 11/09/16 11:09 Glucose 158 mg/dL (70-99) H 11/09/16 11:09 POC Glucose 146 (58-89) H 11/09/16 10:04 Calculated Osmolality 316 (280-300) H 11/09/16 11:09 Serum Total Protein 5.9 g/dL (6.0-8.3) L 11/07/16 18:56 Albumin 3.0 g/dL (3.5-5.0) L 11/07/16 18:56 Albumin/Globulin Ratio 1.0 (1.1-2.2) L 11/07/16 18:56 Gastric Occult Blood Positive (Negative) A 11/07/16 20:00 Diabetes panel 11/09/16 11/09/16 Range/Units 11:09 11:09 Sodium 146 H (136-145) mEq/L Potassium 3.2 L (3.5-4.5) mEq/L Chloride 109 (98-109) mEq/L Carbon Dioxide 29 (19-29) mEq/L BUN 42 H D (7-20) mg/dL Creatinine 1.14 H (0.57-1.11) mg/dL Glucose 158 H (70-99) mg/dL Hemoglobin A1c 5.3 ( - 5.6) % Calcium 8.6 (8.6-10.8) mg/dL Calcium panel 11/09/16 Range/Units 11:09 Calcium 8.6 (8.6-10.8) mg/dL Phosphorus 3.3 (2.3-4.7) mg/dL Pituitary panel 11/09/16 Range/Units 11:09 Sodium 146 H (136-145) mEq/L Potassium 3.2 L (3.5-4.5) mEq/L Chloride 109 (98-109) mEq/L Carbon Dioxide 29 (19-29) mEq/L BUN 42 H D (7-20) mg/dL Creatinine 1.14 H (0.57-1.11) mg/dL Glucose 158 H (70-99) mg/dL Calcium 8.6 (8.6-10.8) mg/dL Adrenal panel 11/09/16 Range/Units 11:09 Sodium 146 H (136-145) mEq/L Potassium 3.2 L (3.5-4.5) mEq/L Chloride 109 (98-109) mEq/L Carbon Dioxide 29 (19-29) mEq/L BUN 42 H D (7-20) mg/dL Creatinine 1.14 H (0.57-1.11) mg/dL Glucose 158 H (70-99) mg/dL Calcium 8.6 (8.6-10.8) mg/dL All other labs normal. - Imaging CT scan - abdomen: report reviewed, image reviewed CT scan - pelvis: report reviewed, image reviewed - Attending Attestation I examined this patient and my medical decision-making was reviewed with the [facility] [employer]ATION/PA/Advanced Practice Nurse/Resident Physician. I agree with the documented findings, disposition and treatment plan as described except to the extent set forth below.
[2016-11-09] MEDS: Sucralfate 1 GM TABLET PO SCH ×2 (10:54→15:40)
[2016-11-09] MEDS: 0.9 % Sodium Chloride 1,000 ML IVC SCH ×2 (10:56→15:28)
[2016-11-09] MEDS: amLODIPine 5 MG TABLET PO SCH (10:56)
[2016-11-09] MEDS ORDERED: Lacri-Lube 3.5 GM TUBE BOTH EYES PRN (11:07)
[2016-11-09] MEDS ORDERED: *HR* Midazolam HCl 2 MG/2 ML VIAL IVP PRN (11:10)
[2016-11-09] MEDS ORDERED: Dexmedetomidine HCl 400 MCG/100 ML MLS IVC SCH (11:15)
[2016-11-09] MEDS ORDERED: FentaNYL (PF) 1,000 MCG in 0.9 % Sodium Chloride 80 ML IVC SCH (11:15)
[2016-11-09 11:19] LABS: Basophils % 0.1 %; Hematocrit 28.3 % (35.3-44.9); Hemoglobin 8.7 g/dL (11.5-15.4); Immature Granulocytes % 0.8 % (0-4); Lymphocytes # 1.5 K/mcL (0.6-4.6); Mean Corpuscular HGB Conc 30.7 g/dL (31.6-35.5); Mean Corpuscular Hemoglobin 27.8 pg (28.0-33.3); Mean Corpuscular Volume 90.4 fL (83.0-100.0); Mean Platelet Volume 10.5 fL (9.4-12.4); Monocytes # 1.2 K/mcL (0.0-1.3); Monocytes % 7.6 %; Neutrophils # 12.5 K/mcL (1.6-8.9); Platelet Count 302 K/mcL (140-400); Red Blood Count 3.13 M/mcL (3.82-4.97); Red Cell Distribution Width 13.7 % (11.5-14.5); Segmented Neutrophils % 81.5 %
[2016-11-09 11:31] LABS: Calcium 8.6 mg/dL (8.6-10.8); Magnesium 1.9 mg/dL (1.6-2.6); Phosphorous 3.3 mg/dL (2.3-4.7); Potassium 3.2 mEq/L (3.5-4.5)
--- NOTE | 2016-11-09 11:37 | Pulmonology Consult Note ---
<MichaelChris W - Last Filed: 11/09/16 14:18> Medications and Allergies Acetaminophen [Tylenol] 500 mg PO Q6HR PRN 11/02/16 [History] Celecoxib [Celebrex] 100 mg PO BID 11/02/16 [History] Fluphenazine HCl 1 mg PO Q4H PRN 11/02/16 [History] Tramadol HCl [Ultram] 50 mg PO Q4H PRN 11/02/16 [History] Amlodipine [Norvasc] 10 mg PO DAILY #30 tablet 11/04/16 [Rx] Omeprazole [PriLOSEC] 40 mg PO BIDAC #120 capsule. 11/04/16 [Rx] Sucralfate [Carafate] 1 gm PO QIDAC #120 tablet 11/04/16 [Rx] Ferrous Sulfate [Iron] 325 mg PO DAILY 11/08/16 [History] Allergies No Known Allergies Allergy (Verified 09/08/16 02:27) All Systems: A 10-system review of systems was performed and is negative for pertinent findings except as documented above in the HPI. Physical Examination Vital Signs: Vital Signs, Last 4 Hours Temp Pulse Resp BP Pulse Ox 11/09/16 13:00 85 15 152/67 91 L 11/09/16 12:08 85 16 152/67 100 11/09/16 10:40 96.6 F L 100 16 131/98 100 11/09/16 10:30 97.5 F L 82 20 153/83 100 Ventilator Settings Ventilator Settings: Ventilator Settings, Last 8 Hours Ventilator Mode VC+ Ventilator Mode VC+ Ventilator Mode A/C Ventilator Mode VC+ Ventilator Mode A/C Ventilator Mode VC+ Ventilator Mode A/C Ventilator Tidal Volume 350 Setting Ventilator Tidal Volume 400 Setting Ventilator Tidal Volume 400 Setting Ventilator Tidal Volume 400 Setting Ventilator Tidal Volume 400 Setting Ventilator Tidal Volume 350 Setting Ventilator Tidal Volume 400 Setting Ventilator Respiratory Rate 12 Setting Ventilator Respiratory Rate 12 Setting Ventilator Respiratory Rate 12 Setting Ventilator Respiratory Rate 12 Setting Ventilator Respiratory Rate 12 Setting Ventilator Respiratory Rate 12 Setting Ventilator Respiratory Rate 12 Setting Actual Respiratory Rate 15 Actual Respiratory Rate 14 Actual Respiratory Rate 16 Actual Respiratory Rate 20 Actual Respiratory Rate 15 Actual Respiratory Rate 20 Positive End Expiratory 5 Pressure Positive End Expiratory 5 Pressure Positive End Expiratory 5 Pressure Positive End Expiratory 5 Pressure Positive End Expiratory 5 Pressure Positive End Expiratory 5 Pressure Positive End Expiratory 5 Pressure Peak Inspiratory Airway 16 Pressure Peak Inspiratory Airway 17 Pressure Peak Inspiratory Airway 20 Pressure Peak Inspiratory Airway 22 Pressure Peak Inspiratory Airway 24 Pressure Peak Inspiratory Airway 22 Pressure Results - Laboratory Findings CBC and BMP: 11/09/16 11:09 11/09/16 11:09 ABG ABG pH 7.50 pH Units (7.32-7.45) H 11/09/16 12:00 ABG pCO2 40 mmHg (35-45) 11/09/16 12:00 ABG pO2 360 mmHg (85-104) H 11/09/16 12:00 ABG O2 Saturation 100 % (95-98) H 11/09/16 12:00 PT/INR, D-dimer PT 11.0 Seconds (9.4-12.1) 11/07/16 18:56 Abnormal lab findings: Abnormal lab results WBC 15.3 K/mcL (4.3-11.1) H 11/09/16 11:09 RBC 3.13 M/mcL (3.82-4.97) L 11/09/16 11:09 Hgb 8.7 g/dL (11.5-15.4) L 11/09/16 11:09 Hct 28.3 % (35.3-44.9) L 11/09/16 11:09 MCH 27.8 pg (28.0-33.3) L 11/09/16 11:09 MCHC 30.7 g/dL (31.6-35.5) L 11/09/16 11:09 Neutrophils # 12.5 K/mcL (1.6-8.9) H 11/09/16 11:09 APTT 21.4 Seconds (26.0-36.0) L 11/07/16 18:56 ABG pH 7.50 pH Units (7.32-7.45) H 11/09/16 12:00 ABG pO2 360 mmHg (85-104) H 11/09/16 12:00 ABG HCO3 31.2 mEQ/L (21-27) H 11/09/16 12:00 ABG Total CO2 32.4 mEq/L (20-26) H 11/09/16 12:00 ABG O2 Saturation 100 % (95-98) H 11/09/16 12:00 ABG Base Excess 7.4 mEq/L (-2.0 to 3.0) H 11/09/16 12:00 Sodium 146 mEq/L (136-145) H 11/09/16 11:09 Potassium 3.2 mEq/L (3.5-4.5) L 11/09/16 11:09 BUN 42 mg/dL (7-20) H D 11/09/16 11:09 Creatinine 1.14 mg/dL (0.57-1.11) H 11/09/16 11:09 Est GFR ( Amer) 54 (> 60) L 11/09/16 11:09 Est GFR (Non-Af Amer) 45 (> 60) L 11/09/16 11:09 BUN/Creatinine Ratio 37 (6-26) H 11/09/16 11:09 Glucose 158 mg/dL (70-99) H 11/09/16 11:09 Calculated Osmolality 316 (280-300) H 11/09/16 11:09 Serum Total Protein 5.9 g/dL (6.0-8.3) L 11/07/16 18:56 Albumin 3.0 g/dL (3.5-5.0) L 11/07/16 18:56 Albumin/Globulin Ratio 1.0 (1.1-2.2) L 11/07/16 18:56 Gastric Occult Blood Positive (Negative) A 11/07/16 20:00 - Clinical Findings Intake & Output: Intake & Output 11/08/16 11/09/16 11/09/16 23:59 07:59 15:59 Intake Total 75 / 75 1000 / 1000 Balance 75 / 75 1000 / 1000 Weight 56.3 kg 55 kg Consult Discharge Plan - Plan Referrals: Librado Bennett MD [Primary Care Provider] - (SENT WEB REQUEST ON 11-08-16 @ [phone]) - Attending Attestation I examined this patient and my medical decision-making was reviewed with the IMPORT/EXPORT ADMINISTRATOR/PA/Advanced Practice Nurse/Resident Physician. I agree with the documented findings, disposition and treatment plan as described except to the extent set forth below. Patient seen and examined at bedside Labs, radiology, chart personally reviewed. All lines examined without evidence of infection. Neuropsych: intubated and sedated. Fentanyl and Precedex. wean for goal Alejandra 2 ; baseline underlying dementia avoid benzos Pulm: acute respiratory failure s/t aspiration. minimal O2 requirements. CT Thorax without significant consolidation. Small left effusion. Noted. CPAP trial if patient no surgical candidate Cards: BP/HR stable. FEN-GI: Hematemsis on PPI gtt; Gastric outlet obstruction with concern for volvulus GI could not complete EGD; Surgical consult Renal: No Marie monitor UOP and Lytes Daily ID: Aspiration Pneumonitis wihout consolidation. Culture. Cover for aspiration pneumonia if spikes fever or other clinical deterioration Heme/Onc: Monitor H&H for upper GI hemorrhage every 6 hours check INR evaluate for coagulopathy; SCDs for now for DVT prophylaxis Endo: Glucose monitored Integ/MSK: Skin care per ICU protocol CODE: DNR comfort care arrest spoke with family including (HKPOAs) the patient' s adult daughter and adult son, they are clear that patient would not want aggressive interventions done and quality of life had been poor since fracturing hip earlier in the year with worsening mental status we will wait for full surgical evaluation and give options consulted palliative care to help address these goals of care <Sachin Little - Last Filed: 11/09/16 14:41> Date of Encounter: 11/09/16 Time of Encounter: 10:05 Assessment and Plan (1) Acute respiratory failure Current Visit: Yes Status: Acute Acute respiratory failure secondary to emesis during EGD. Underwent emergent intubation in order to protect airway. No prior report of respiratory concerns. Metabolic alkalosis without respiratory compensation seen on initial ABG following intubation, will adjust ventilator settings for lower tidal volume in order to promote greater CO2 retention and lowering of patient pH. We will obtain sputum culture No antibiotics until there is a more obvious pneumonia present Continue intubation and mechanical ventilation Sedation with fentanyl and Precedex Qualifiers: Respiratory failure complication: unspecified whether with hypoxia or hypercapnia Qualified Code(s): J96.00 - Acute respiratory failure, unspecified whether with hypoxia or hypercapnia (2) GI bleed Current Visit: Yes Status: Acute Reports that patient hematemesis and abdominal pain at the custodial where she resides, this is following a recent EGD that showed 2 nonbleeding, suspicious vessels in the stomach that were clipped at that time. EGD performed today showed large esophageal diverticulum, large hiatal hernia, and volvulus of the stomach causing outlet obstruction prior to patient emesis. Hemoglobin slowly trending down, but otherwise stable Patient receiving 40 mg IV pantoprazole 3 times a day Patient receiving 1 g Carafate 4 times a day Gastroenterology and general surgery following an appreciate recommendations for continued management/Care CT scan performed today did not show evidence of gastric outlet obstruction or gastric volvulus Qualifiers: GI bleed type/associated pathology: gastrointestinal hemorrhage with hematemesis Qualified Code(s): K92.0 - Hematemesis (3) Anemia Current Visit: Yes Status: Chronic Patient anemia likely secondary to upper GI bleed. Hustle up in trending down with hemoglobin right now at 8.7 with admission hemoglobin of 10.9. No significant or sudden drop, but we will continue to watch with daily labs Plan as above Qualifiers: Anemia type: other cause Other causes of anemia: acute posthemorrhagic Qualified Code(s): D62 - Acute posthemorrhagic anemia (4) DVT prophylaxis Current Visit: Yes Status: Acute GI prophylaxis: Protonix gtt. DVT prophylaxis: EPCDs, prophylaxis due to patient upper GI bleed Neuro/sedation: Baseline dementia (unsure how severe), currently sedated on fentanyl and Precedex and mechanically ventilated Cardiovascular: No concerns at this time Pulmonary: Mechanically ventilated due to concerns of aspiration following EGD. Chest CT showed large hiatal hernia and small left pleural effusion. Will obtain sputum culture and adjust ventilator settings to decrease patient's alkalosis Renal: Slight worsening of patient kidney function seen, will check chemistry in the morning GI: Reports hematemesis, placed on Protonix gtt. concern for gastric outlet obstruction caused by volvulus, CT negative or volvulus, general surgery consulted Heme: Slowly downward trending hemoglobin, likely from GI bleed, we will continue every 6 hours H&H, INR, and transfuse if necessary ID: Aspiration pneumonitis, from emesis during EGD. Will obtain sputum culture and give antibiotics if patient becomes febrile. Endocrine: We will monitor glucose with daily labs Fluids/electrolytes: Hypokalemia at 3.2, will reassess patient potassium tomorrow and replace if needed MSK: No concerns at this time Skin: Skin care per ICU protocol CODE STATUS: DNR CCA/DNI Patient's family indicates that they do not believe the patient would want aggressive interventions, but will wait for family discussion surgical team for potential options prior to consult with palliative care team (5) Dementia Current Visit: No Status: Chronic Qualifiers: Dementia type: unspecified type Dementia behavioral disturbance: with behavioral disturbance Qualified Code(s): F03.91 - Unspecified dementia with behavioral disturbance History of Present Illness Consult date: 11/09/16 Requesting physician: Tonia Aguilar Reason for consult: other (Possible aspiration during EGD) Chief complaint: Hematemesis History of present illness: Mrs. Honeycutt is an 89-year-old woman with past medical history of dementia, upper GI bleed, and recent hip fracture. Who presented to [facility] on 11/07/16 after having episodes of abdominal pain and hematemesis at the custodial which she resides. Since admitted on 11/07/16 her hemoglobin has remained stable , she was started on twice a day pantoprazole, Carafate, and gastroenterology was consulted regarding need for EGD. She underwent EGD on 11/09/16, that showed a large esophageal diverticulum, large hiatal hernia, and volvulus of the stomach causing gastric outlet obstruction prior to patient having copious amounts of emesis of gastric contents. She was emergently intubated at that time in order to protect her airway. At which point general surgery was consulted because of concerns of gastric outlet obstruction due to gastric volvulus. She was moved to ICU at that time and will undergo CT scans to further evaluate for potential gastric Obstruction. She had recently been discharged from [facility] on 11/04/16 after having undergone a workup for an upper GI bleed at that time. Hemoglobin have remained stable, but she was found to have 2 sites of vessel exposure that were suspicious for recent GI bleeding and were clipped at that time (11/03/16). Past Med Surg Social Fam HX - Past Medical History Medical history: dementia, GERD, GI bleed, hypertension, other (anemia) Psychiatric history: no psych history - Past Surgical History Surgical History: orthopedic, other (Right hip (partial secondary to fracture); EGD X 2) - Social History Smoking Status: Never smoker Smokeless Tobacco Status: No Alcohol use: none Drug use: none ROS unobtainable: due to endotracheal tube Physical Examination Vital Signs: Vital Signs, Last 4 Hours Temp Pulse Resp BP Pulse Ox 11/09/16 10:40 96.6 F L 100 16 131/98 100 11/09/16 10:30 97.5 F L 82 20 153/83 100 11/09/16 09:52 97.5 F L 80 20 153/83 100 11/09/16 09:42 82 20 125/84 100 11/09/16 09:32 84 20 156/53 100 11/09/16 09:28 20 100 11/09/16 09:22 97.2 F L 85 20 156/83 100 11/09/16 08:00 82 22 99/48 84 L 11/09/16 07:55 87 22 108/50 86 L 11/09/16 07:50 98.1 F 96 20 110/59 88 L 11/09/16 07:45 98.1 F 98 20 136/62 90 L 11/09/16 07:39 98.1 F 96 20 146/63 97 Constitutional: Patient intubated and sedated EENT: Sclera nonicteric, noninjected, PERRL Respiratory: Respirations nonlabored, diffuse rhonchi and bibasilar rales Cardiovascular: Regular rate and rhythm, no murmurs/rubs/gallops appreciated Gastrointestinal: Hypoactive bowel sounds, soft, patient appeared to react to palpation of her abdomen, nondistended, no guarding or rebound Integumentary: No erythema, no rashes, no pallor appreciated, capillary refill < 2 seconds, skin turgor normal Extremities: No cyanosis, no edema, no clubbing, pink and warm, pulses present and equal bilaterally Musculoskeletal: No deformities Neurologic: Patient intubated and sedated Ventilator Settings Ventilator Settings: Ventilator Settings, Last 8 Hours Ventilator Mode VC+ Ventilator Mode A/C Ventilator Mode A/C Ventilator Tidal Volume 400 Setting Ventilator Tidal Volume 400 Setting Ventilator Tidal Volume 400 Setting Ventilator Respiratory Rate 12 Setting Ventilator Respiratory Rate 12 Setting Ventilator Respiratory Rate 12 Setting Actual Respiratory Rate 16 Actual Respiratory Rate 20 Actual Respiratory Rate 20 Positive End Expiratory 5 Pressure Positive End Expiratory 5 Pressure Positive End Expiratory 5 Pressure Peak Inspiratory Airway 20 Pressure Peak Inspiratory Airway 22 Pressure Peak Inspiratory Airway 22 Pressure Results - Laboratory Findings CBC and BMP: 11/09/16 11:09 11/09/16 11:09 PT/INR, D-dimer PT 11.0 Seconds (9.4-12.1) 11/07/16 18:56 Abnormal lab findings: Abnormal lab results RBC 3.61 M/mcL (3.82-4.97) L 11/08/16 00:49 Hgb 9.2 g/dL (11.5-15.4) L 11/08/16 18:38 Hct 29.7 % (35.3-44.9) L 11/08/16 18:38 Neutrophils # 9.6 K/mcL (1.6-8.9) H 11/08/16 00:49 APTT 21.4 Seconds (26.0-36.0) L 11/07/16 18:56 BUN 27 mg/dL (7-20) H 11/08/16 00:49 Est GFR (Non-Af Amer) 57 (> 60) L 11/08/16 00:49 BUN/Creatinine Ratio 29 (6-26) H 11/08/16 00:49 Glucose 191 mg/dL (70-99) H 11/08/16 00:49 Calculated Osmolality 302 (280-300) H 11/08/16 00:49 Serum Total Protein 5.9 g/dL (6.0-8.3) L 11/07/16 18:56 Albumin 3.0 g/dL (3.5-5.0) L 11/07/16 18:56 Albumin/Globulin Ratio 1.0 (1.1-2.2) L 11/07/16 18:56 Gastric Occult Blood Positive (Negative) A 11/07/16 20:00 - Clinical Findings Intake & Output: Intake & Output 11/08/16 11/09/16 11/09/16 23:59 07:59 15:59 Intake Total 1000 / 1000 Balance 1000 / 1000 Weight 56.3 kg 55 kg
--- NOTE | 2016-11-09 11:54 | Internal Med Progress Note ---
Date of Encounter: 11/09/16 Time of Encounter: 11:10 - Assessment and plan (1) Upper GI bleed Current Visit: No Status: Acute Assessment and plan: Pt recently underwent EGD a week ago which showed large hiatal hernia with 2 localized spots with visible vessels with no bleeding and clips were placed Admitted for recurrent hemetemeis Reported to have recurrence of hematemesis during the EGD requring intubation for airway protection Transferred to the ICU at this time Critical care consulted-Dr. Thacker informed. Surgery consultation requested GI consultation on board. Closely monitor H&H and transfuse as needed (2) Hematemesis Current Visit: Yes Status: Acute Assessment and plan: as listed above Qualifiers: Qualified Code(s): K92.0 - Hematemesis; R11.0 - Nausea (3) Anemia Current Visit: Yes Status: Chronic Assessment and plan: secondary to acute blood loss anemia closely monitor H&H transfuse as needed Qualifiers: Qualified Code(s): D62 - Acute posthemorrhagic anemia (4) GERD (gastroesophageal reflux disease) Current Visit: Yes Status: Chronic Qualifiers: Qualified Code(s): K21.9 - Gastro-esophageal reflux disease without esophagitis (5) Hypertension Current Visit: Yes Status: Chronic Assessment and plan: BP within acceptable range continue Amlodipine at this time Qualifiers: Qualified Code(s): I10 - Essential (primary) hypertension (6) DVT prophylaxis Current Visit: Yes Status: Acute Assessment and plan: IPCD - Subjective Interval history: Patient is an 89y/o female admitted for evaluation of hematemesis secondary to Upper GI bleed. Earlier today patient was taken to EGD. During and prior to the procedure, patient was noted to have vomited 2000cc of dark blood and was reported to have O2 desaturation. At that time patient was intubated to protect the airway and for acute respiratory failure. Patient was then transferred to the ICU. At this time patient is intubated and sedated in the ICU. I spoke with patient's son who is aware of all the events from this morning. He states he will speak with his sister and decide if patient should undergo any surgical procedure, as the patient would not have wanted that herself. Surgery MANAGER OPERATIONS RESEARCH informed and she will communicate with the family prior to any surgical intervention. - Constitutional Vitals: Temp Pulse Resp BP Pulse Ox 96.6 F L 100 16 131/98 100 11/09/16 10:40 11/09/16 10:40 11/09/16 10:40 11/09/16 10:40 11/09/16 10:40 General appearance: Present: A&O X 0 (intubated and sedated ), cooperative - Head Head exam: Present: atraumatic, normocephalic - Respiratory Respiratory exam: Absent: respiratory distress, wheezes - Cardiovascular Cardiovascular exam: Present: RRR, +S1, +S2 - GI/Abdominal GI/Abdominal exam: Present: normal bowel sounds, soft. Absent: tenderness - Extremities Exam Extremities exam: Present: pedal edema, warm, radial pulses palpable and symetrical. Absent: calf tenderness, tenderness - Neurological Exam Additional comments: Sedated and ventilated Internal Medicine: Result - Labs CBC & Chem 7: 11/09/16 11:09 11/09/16 11:09 Labs: Short CBC 11/08/16 11/09/16 Range/Units 18:38 11:09 WBC 15.3 H (4.3-11.1) K/mcL Hgb 9.2 L 8.7 L (11.5-15.4) g/dL Hct 29.7 L 28.3 L (35.3-44.9) % Plt Count 302 (140-400) K/mcL Neutrophils # 12.5 H (1.6-8.9) K/mcL BMP 11/09/16 11:09 Sodium 146 H Potassium 3.2 L Chloride 109 Carbon Dioxide 29 BUN 42 H D Creatinine 1.14 H Glucose 158 H Calcium 8.6 - ABG Interpretation ABG results: PT/INR, D-dimer PT 11.0 Seconds (9.4-12.1) 11/07/16 18:56 Consult Discharge Plan - Plan Referrals: Librado Bennett MD [Primary Care Provider] - (SENT WEB REQUEST ON 11-08-16 @ [phone])
[2016-11-09 12:10] LABS: ABG Base Excess 7.4 mEq/L (-2.0 to 3.0); ABG HCO3 31.2 mEQ/L (21-27); ABG Oxygen Saturation 100 % (95-98); ABG PCO2 40 mmHg (35-45); ABG PO2 360 mmHg (85-104); ABG TCO2 32.4 mEq/L (20-26)
[2016-11-09 12:14] LABS: Blood Gas Respiration Rate 12
[2016-11-09 13:33] LABS: Hemoglobin A1C 5.3 %
[2016-11-09] MEDS ORDERED: Pantoprazole 40 MG in 0.9 % Sodium Chloride Mini Bag 100 ML IVC SCH (13:45)
--- NOTE | 2016-11-09 14:30 | Electrocardiograph Report ---
[address] [place] [address] Test Date: 2016-11-09 Pat Name: Ginger Honeycutt Department: 101 Room: [facility] Gender: F Formulator: : [id number] Requested By: Alexi Estevez Order Number: [id number] Reading MD: Chandu Flaherty Measurements Intervals Palmer Rate: 82 P: 62 OR: 134 QRS: -43 QRSD: 138 T: 130 QT: 427 QTc: 465 Interpretive Statements SINUS RHYTHM LEFT BUNDLE BRANCH BLOCK Electronically Signed On 11-09-2016 14:28:25 EST by Chandu Flaherty
[2016-11-09 14:51] LABS: Prothrombin Time 11.2 Seconds (9.4-12.1)
[2016-11-09] MEDS ORDERED: 0.9 % Sodium Chloride 500 ML IVC ONE (14:54)
[2016-11-09] MEDS ORDERED: *HR* LORazepam 2 MG/ML VIAL IVP ONE (15:58)
--- NOTE | 2016-11-09 16:11 | Palliative - Consult Note ---
Date of Encounter: 11/09/16 Time of Encounter: 16:06 - Assessment and Plan (1) Goals of care, counseling/discussion Current Visit: Yes Status: Acute Assessment and plan: Family wishes the patient to be comfort care only at this point in time leave that she would want to have any further aggressive care. This will include stopping all blood draws no transfusions and no further procedures, as well as involve stopping the ventilator. She will transition to hospice tomorrow. (2) GI bleed Current Visit: Yes Status: Acute Assessment and plan: Bleeding is presumably still occurring. Continue NG suction when necessary incision to hospice care tomorrow. If the patient makes it tonight. Qualifiers: GI bleed type/associated pathology: gastrointestinal hemorrhage with hematemesis Qualified Code(s): K92.0 - Hematemesis (3) Upper GI bleed Current Visit: No Status: Acute Assessment and plan: At this point comfort measures only. We will use NG suction as needed for eating, however this will probably be stopped tomorrow and the patient transitions to the palliative care floor. The patient will remain in the ICU tonight. Palliative-CN HPI - Data of Consult Patient: new to practice Requesting Physician: Alexi Estevez Primary Care Provider: Librado Bennett MD - Consult Narrative Palliative Care/Comfort Measures: Palliative care Reason for consult: goals of care History of present illness: Ms. Honeycutt is a 89 year old female History of gastroesophageal reflux and recent hip fracture just discharged after having had an upper GI bleed. Her last hospital stay she underwent upper GI endoscopy which showed a large hiatal hernia with 2 areas that appeared susceptible to bleeding although was no active bleeding noted. These were both clipped had a large diverticulum in her lower esophagus. He was discharged on . Asymptomatic until they prior to admit. On 11/07 she was admitted due to hematemesis. However her hemoglobin appeared to remain stable. He underwent EGD today that showed large esophageal diverticulum large hiatal hernia and volvulus of the stomach causing what was felt to be gastric outlet obstruction. He had copious amounts of emesis of gastric content and she was emergently Intubated and checked her airway. Surgery was then consultation due to concerns of gastric outlet obstruction due to gastric volvulus. She was moved to the intensive care unit on the ventilator. Arriving in the intensive care unit family has decided that she would not want to have any further invasive treatment. Have declined any further aggressive therapy of any kind including transfusions wished her to be comfort care only. Also wished to have the ventilator discontinued with no reintubation. Due to family wishes with her both of her medical birch of business attorney are in agreement patient will be compassionately extubated further labs will be drawn the patient will be transitioned to hospice care tomorrow morning. CC: Alexi Estevez Nausea and vomiting with hematemesis. Past Med Surg Social Fam HX - Past Medical History Medical history: dementia, GERD, GI bleed, hypertension, other (anemia) Psychiatric history: no psych history - Past Surgical History Surgical History: orthopedic, other (Right hip (partial secondary to fracture); EGD X 2) - Social History Smoking Status: Never smoker Smokeless Tobacco Status: No Alcohol use: none Drug use: none Medications and Allergies Acetaminophen [Tylenol] 500 mg PO Q6HR PRN 11/02/16 [History] Celecoxib [Celebrex] 100 mg PO BID 11/02/16 [History] Fluphenazine HCl 1 mg PO Q4H PRN 11/02/16 [History] Tramadol HCl [Ultram] 50 mg PO Q4H PRN 11/02/16 [History] Amlodipine [Norvasc] 10 mg PO DAILY #30 tablet 11/04/16 [Rx] Omeprazole [PriLOSEC] 40 mg PO BIDAC #120 capsule. 11/04/16 [Rx] Sucralfate [Carafate] 1 gm PO QIDAC #120 tablet 11/04/16 [Rx] Ferrous Sulfate [Iron] 325 mg PO DAILY 11/08/16 [History] Allergies No Known Allergies Allergy (Verified 09/08/16 02:27) ROS unobtainable: due to mental status Palliative Care-Exam - Constitutional Vitals: Temp Pulse Resp BP Pulse Ox 96.6 F L 65 15 83/41 100 11/09/16 10:40 11/09/16 15:00 11/09/16 15:00 11/09/16 15:00 11/09/16 15:00 General appearance: Present: no acute distress - Eye Eye exam: Present: normal appearance - ENT ENT exam: Present: mucous membranes moist (On vent) - Respiratory Respiratory exam: Present: decreased breath sounds (On event) - Cardiovascular Cardiovascular exam: Present: RRR - GI/Abdominal Exam GI/Abdominal exam: Present: diminished bowel sounds, soft. Absent: tenderness - Catheter Type: Urethral ([place]) - Extremities Exam Extremities exam: Present: normal inspection. Absent: pedal edema, tenderness - Neurological Exam Neurological exam: Present: altered (On ventilator, sedated) - Psychiatric Psychiatric exam: Absent: agitated, anxious - Skin Skin exam: Present: dry, warm Internal Medicine - CN: Reslt - Labs CBC & Chem 7: 11/09/16 14:54 11/09/16 11:09 Labs: Short CBC 11/08/16 11/09/16 11/09/16 Range/Units 18:38 11:09 14:54 WBC 15.3 H (4.3-11.1) K/mcL Hgb 9.2 L 8.7 L 7.0 L D (11.5-15.4) g/dL Hct 29.7 L 28.3 L 22.0 L (35.3-44.9) % Plt Count 302 (140-400) K/mcL Neutrophils # 12.5 H (1.6-8.9) K/mcL BMP 11/09/16 11:09 Sodium 146 H Potassium 3.2 L Chloride 109 Carbon Dioxide 29 BUN 42 H D Creatinine 1.14 H Glucose 158 H Calcium 8.6 - ABG Interpretation ABG results: ABG ABG pH 7.50 pH Units (7.32-7.45) H 11/09/16 12:00 ABG pCO2 40 mmHg (35-45) 11/09/16 12:00 ABG pO2 360 mmHg (85-104) H 11/09/16 12:00 ABG O2 Saturation 100 % (95-98) H 11/09/16 12:00 PT/INR, D-dimer PT 11.2 Seconds (9.4-12.1) 11/09/16 11:09 - Impressions Impressions KUB X-Ray 11/09/16 12:45 IMPRESSION: Suspected large paraesophageal hernia. The stomach is distorted making gastric volvulus difficult to exclude. No gross volvulus is suspected. However, upper GI with small-bowel follow-through may be of value to help exclude gastric outlet obstruction. D/ / 11/09/2016 14:03:24 Raad Mims MD / [facility] Interpreting Provider: Raad Mims MD Abdomen CT 11/09/16 13:30 IMPRESSION: Large hiatal hernia. No gross gastric volvulus is identified. No bowel wall thickening or perforation is evident. No acute process within the upper abdomen. The pelvis is not imaged. Small left pleural effusion with associated left lower lobe atelectasis. D/ / 11/09/2016 12:32:10 Raad Mims MD / [facility] Interpreting Provider: Raad Mims MD Chest CT 11/09/16 13:30 IMPRESSION: 1. Large hiatal hernia with majority of the stomach in the thorax. The enteric catheter loops upon itself in the portion of the stomach that is intra-abdominal and terminates in the portion of the stomach that is intrathoracic. 2. Small left pleural effusion with collapse of the left lower lobe. 3. Age indeterminate compression fracture of T5 with approximately 30% of height loss. 4. ETT tip is 2.7 cm above the belinda. D/ / 11/09/2016 12:33:23 Suresh Mcneill MD / [facility] Interpreting Provider: Suresh Mcneill MD KUB X-Ray 11/09/16 14:35 IMPRESSION: There has been no passage of contrast from the stomach into the intestine, compatible with gastric outlet obstruction D/ / Perico Reinoso MD / Perico Reinoso MD Interpreting Provider: Perico Reinoso MD Consult Discharge Plan - Plan Referrals: Librado Bennett MD [Primary Care Provider] - (SENT WEB REQUEST ON 11-08-16 @ [id number]) Palliative Quality Palliative Quality: Screen for Code Status: Yes, Screen for Goals of Care: Yes, Screen for Pain: Yes, If Pain Regimen Started, Initiate Bowel Regimen: NA, Screen for Nausea/Vomitting: Yes
--- NOTE | 2016-11-09 16:29 | Event Note ---
Date of Encounter: 11/09/16 Time of Encounter: 15:30 Was called to patient room because of continued hypotension of 60s/40s. Family was present and there was a discussion regarding the patient's goals of care and treatment options. After patient's blood pressure is initially stabilized in the 500 mL bolus of normal saline, the option was presented the family to pursue potentially more aggressive measures to help maintain her blood pressure including central line placement and vasopressor agents. The family declined pursuing these options and stated that the patient would not want this. After further discussion with the family it was determined that they did not want any blood transfusions or surgical interventions either. At this point was outside to involve Dr. Ortiz with the palliative medicine team. Further discussion was had with the family and they decided to pursue comfort care measures for the patient. They desire to pursue extubation this evening and withdrawal of continuing interventions with the plan of transfer to the palliative medicine floor tomorrow. At this point they would like to pursue hospice care.
[2016-11-09] MEDS: Lacri-Lube 3.5 GM TUBE BOTH EYES SCH ×4 (16:39→22:36)
[2016-11-09] MEDS: *HR* LORazepam 2 MG/ML VIAL IVP PRN (19:22)
[2016-11-09] MEDS: *HR* Morphine 2 MG/ML SYRINGE IVP PRN (20:52)
[2016-11-09] MEDS ORDERED: Chlorhexidine Rinse 15 ML MOUTHWASH MM SCH (21:00)
[2016-11-10] MEDS: *HR* LORazepam 2 MG/ML VIAL IVP PRN ×3 (00:11→20:06)
[2016-11-10] MEDS: Lacri-Lube 3.5 GM TUBE BOTH EYES SCH ×3 (02:34→12:41)
--- NOTE | 2016-11-10 07:13 | Pulmonology Progress Note ---
<Chris Rodriguez W - Last Filed: 11/10/16 10:00> Objective PUL Vital signs: Last Vital Signs Temp 97.9 F 11/10/16 08:05 Pulse 79 11/10/16 07:30 Resp 19 11/10/16 05:23 BP 128/53 11/10/16 05:23 Pulse Ox 100 11/10/16 05:23 Results - Laboratory Findings CBC and BMP: 11/09/16 14:54 11/09/16 11:09 ABG ABG pH 7.50 pH Units (7.32-7.45) H 11/09/16 12:00 ABG pCO2 40 mmHg (35-45) 11/09/16 12:00 ABG pO2 360 mmHg (85-104) H 11/09/16 12:00 ABG O2 Saturation 100 % (95-98) H 11/09/16 12:00 PT/INR, D-dimer PT 11.2 Seconds (9.4-12.1) 11/09/16 11:09 Abnormal lab findings: Abnormal lab results WBC 15.3 K/mcL (4.3-11.1) H 11/09/16 11:09 RBC 3.13 M/mcL (3.82-4.97) L 11/09/16 11:09 Hgb 7.0 g/dL (11.5-15.4) L D 11/09/16 14:54 Hct 22.0 % (35.3-44.9) L 11/09/16 14:54 MCH 27.8 pg (28.0-33.3) L 11/09/16 11:09 MCHC 30.7 g/dL (31.6-35.5) L 11/09/16 11:09 Neutrophils # 12.5 K/mcL (1.6-8.9) H 11/09/16 11:09 APTT 21.4 Seconds (26.0-36.0) L 11/07/16 18:56 ABG pH 7.50 pH Units (7.32-7.45) H 11/09/16 12:00 ABG pO2 360 mmHg (85-104) H 11/09/16 12:00 ABG HCO3 31.2 mEQ/L (21-27) H 11/09/16 12:00 ABG Total CO2 32.4 mEq/L (20-26) H 11/09/16 12:00 ABG O2 Saturation 100 % (95-98) H 11/09/16 12:00 ABG Base Excess 7.4 mEq/L (-2.0 to 3.0) H 11/09/16 12:00 Sodium 146 mEq/L (136-145) H 11/09/16 11:09 Potassium 3.2 mEq/L (3.5-4.5) L 11/09/16 11:09 BUN 42 mg/dL (7-20) H D 11/09/16 11:09 Creatinine 1.14 mg/dL (0.57-1.11) H 11/09/16 11:09 Est GFR ( Amer) 54 (> 60) L 11/09/16 11:09 Est GFR (Non-Af Amer) 45 (> 60) L 11/09/16 11:09 BUN/Creatinine Ratio 37 (6-26) H 11/09/16 11:09 Glucose 158 mg/dL (70-99) H 11/09/16 11:09 POC Glucose 146 (58-89) H 11/09/16 10:04 Calculated Osmolality 316 (280-300) H 11/09/16 11:09 Serum Total Protein 5.9 g/dL (6.0-8.3) L 11/07/16 18:56 Albumin 3.0 g/dL (3.5-5.0) L 11/07/16 18:56 Albumin/Globulin Ratio 1.0 (1.1-2.2) L 11/07/16 18:56 Gastric Occult Blood Positive (Negative) A 11/07/16 20:00 - Clinical Findings Intake & Output: Intake & Output 11/09/16 11/10/16 11/10/16 23:59 07:59 15:59 Intake Total 1070 / 1070 0 / 0 Output Total 300 / 300 200 / 200 50 / 50 Balance 770 / 770 -200 / -200 -50 / -50 Consult Discharge Plan - Plan Referrals: Librado Bennett MD [Primary Care Provider] - (SENT WEB REQUEST ON 11-08-16 @ [id number]) - Attending Attestation I examined this patient and my medical decision-making was reviewed with the NURSING STUDENT/PA/Advanced Practice Nurse/Resident Physician. I agree with the documented findings, disposition and treatment plan as described except to the extent set forth below. 89 yo with worsening dementia, SNF resident, acute GI bleed with gastric outlet. POAs decision (with impression from this practitioner as appropriate) was to make patient DNRCC. Palliative care has been consulted. transfer to hospice setting today (inpatient vs outpatient) <Sachin Little - Last Filed: 11/10/16 11:42> Date of Encounter: 11/10/16 Time of Encounter: 06:40 Assessment and Plan (1) Acute respiratory failure Current Visit: Yes Status: Resolved Patient present to ICU after episode of emesis during EGD. She was intubated in order to protect her airway at that time. She was extubated yesterday evening at request of the family in order to pursue more comfort measures at this time. Patient maintaining adequate oxygenation on 2 L nasal cannula Qualifiers: Respiratory failure complication: unspecified whether with hypoxia or hypercapnia Qualified Code(s): J96.00 - Acute respiratory failure, unspecified whether with hypoxia or hypercapnia (2) GI bleed Current Visit: Yes Status: Acute Patient presented from her [facility] after episode of hematemesis and abdominal pain. She had recently been discharged from the hospital where she received treatment for a GI bleed at that time. EGD performed on 11/04 showed 2 areas that were concerning for recent GI bleeding, these were clipped. She underwent EGD on 11/09/16, but after initial evaluation of patient's stomach could not be continued due to patient emesis and concern for gastric outlet obstruction. After which, she received a CT examination that did not show gastric volvulus, but did demonstrate a large hiatal hernia. Patient hemoglobin continue to trend downward, but when offered blood transfusion the family declined. We will continue 40 mg daily pantoprazole per patient comfort Transfer to palliative bed when available Qualifiers: GI bleed type/associated pathology: gastrointestinal hemorrhage with hematemesis Qualified Code(s): K92.0 - Hematemesis (3) Anemia Current Visit: Yes Status: Chronic Patient anemia secondary to GI bleed. Patient family elected for comfort care and we have ceased following H&H. They have declined transfusion at this time Qualifiers: Anemia type: other cause Other causes of anemia: acute posthemorrhagic Qualified Code(s): D62 - Acute posthemorrhagic anemia (4) DVT prophylaxis Current Visit: Yes Status: Acute GI prophylaxis: Pantoprazole DVT prophylaxis: None Neuro/sedation: Mild baseline dementia Cardiovascular: No concerns at this time Pulmonary: Extubated yesterday evening Renal: No repeat labs drawn this morning due to patient's family electing comfort measures GI: Hospitalized for GI bleed, hemoglobin was trending downward, patient's family elected for comfort measures are not interested in further interventions (including surgical options, blood transfusions, or mechanical ventilation) Heme: Slowly downward trending hemoglobin, no repeat lab work due to collection of comfort measures ID: Patient successfully extubated yesterday evening, maintaining adequate oxygenation on 2 L nasal cannula Endocrine: No concerns at this time Fluids/electrolytes: No concerns at this time MSK: No concerns at this time Skin: Skin care per ICU protocol Disposition: Patient will be transferred to palliative care/hospice when bed available CODE STATUS: DNR CC Patient's family indicates that they do not believe the patient would want aggressive interventions and have opted for comfort care at this time. (5) Dementia Current Visit: No Status: Chronic Qualifiers: Dementia type: unspecified type Dementia behavioral disturbance: with behavioral disturbance Qualified Code(s): F03.91 - Unspecified dementia with behavioral disturbance Subjective Principal diagnosis: Hematemesis, GI bleed Interval history: Following discussion with family yesterday evening, the patient was extubated, no blood transfusions were given, and comfort measures were implemented. When seen this morning patient is no longer on sedative drips and remains on sedation with 1 mg pushes of Ativan. She removed her own NG tube, and appears to be resting comfortably. Objective PUL Vital signs: Last Vital Signs Temp 99 F 11/09/16 23:54 Pulse 79 11/10/16 05:23 Resp 19 11/10/16 05:23 BP 128/53 11/10/16 05:23 Pulse Ox 100 11/10/16 05:23 Constitutional: Appears comfortable and maintaining adequate oxygen saturation on nasal cannula EENT: Sclera nonicteric, noninjected, PERRL, mild conjunctival pallor observed Respiratory: Respirations nonlabored, clear to auscultation bilaterally, no wheezes/rhonchi/rales appreciated Cardiovascular: Regular rate and rhythm, no murmurs/rubs/gallops appreciated Gastrointestinal: Hypoactive bowel sounds, soft, nondistended, no guarding or rebound Integumentary: No erythema, no rashes, no pallor appreciated, capillary refill < 2 seconds, skin turgor normal Extremities: No cyanosis, no edema, no clubbing, pink and warm, pulses present and equal bilaterally Musculoskeletal: No deformities Neurologic: Resting comfortably with periodic doses of Ativan Results - Laboratory Findings CBC and BMP: 11/09/16 14:54 11/09/16 11:09 ABG ABG pH 7.50 pH Units (7.32-7.45) H 11/09/16 12:00 ABG pCO2 40 mmHg (35-45) 11/09/16 12:00 ABG pO2 360 mmHg (85-104) H 11/09/16 12:00 ABG O2 Saturation 100 % (95-98) H 11/09/16 12:00 PT/INR, D-dimer PT 11.2 Seconds (9.4-12.1) 11/09/16 11:09 Abnormal lab findings: Abnormal lab results WBC 15.3 K/mcL (4.3-11.1) H 11/09/16 11:09 RBC 3.13 M/mcL (3.82-4.97) L 11/09/16 11:09 Hgb 7.0 g/dL (11.5-15.4) L D 11/09/16 14:54 Hct 22.0 % (35.3-44.9) L 11/09/16 14:54 MCH 27.8 pg (28.0-33.3) L 11/09/16 11:09 MCHC 30.7 g/dL (31.6-35.5) L 11/09/16 11:09 Neutrophils # 12.5 K/mcL (1.6-8.9) H 11/09/16 11:09 APTT 21.4 Seconds (26.0-36.0) L 11/07/16 18:56 ABG pH 7.50 pH Units (7.32-7.45) H 11/09/16 12:00 ABG pO2 360 mmHg (85-104) H 11/09/16 12:00 ABG HCO3 31.2 mEQ/L (21-27) H 11/09/16 12:00 ABG Total CO2 32.4 mEq/L (20-26) H 11/09/16 12:00 ABG O2 Saturation 100 % (95-98) H 11/09/16 12:00 ABG Base Excess 7.4 mEq/L (-2.0 to 3.0) H 11/09/16 12:00 Sodium 146 mEq/L (136-145) H 11/09/16 11:09 Potassium 3.2 mEq/L (3.5-4.5) L 11/09/16 11:09 BUN 42 mg/dL (7-20) H D 11/09/16 11:09 Creatinine 1.14 mg/dL (0.57-1.11) H 11/09/16 11:09 Est GFR ( Amer) 54 (> 60) L 11/09/16 11:09 Est GFR (Non-Af Amer) 45 (> 60) L 11/09/16 11:09 BUN/Creatinine Ratio 37 (6-26) H 11/09/16 11:09 Glucose 158 mg/dL (70-99) H 11/09/16 11:09 POC Glucose 146 (58-89) H 11/09/16 10:04 Calculated Osmolality 316 (280-300) H 11/09/16 11:09 Serum Total Protein 5.9 g/dL (6.0-8.3) L 11/07/16 18:56 Albumin 3.0 g/dL (3.5-5.0) L 11/07/16 18:56 Albumin/Globulin Ratio 1.0 (1.1-2.2) L 11/07/16 18:56 Gastric Occult Blood Positive (Negative) A 11/07/16 20:00 - Clinical Findings Intake & Output: Intake & Output 11/09/16 11/09/16 11/10/16 15:59 23:59 07:59 Intake Total 1045 / 1045 1070 / 1070 0 / 0 Output Total 300 / 300 200 / 200 Balance 1045 / 1045 770 / 770 -200 / -200 Weight 55 kg
--- NOTE | 2016-11-10 09:02 | Palliative Progress Note ---
Date of Encounter: 11/10/16 Time of Encounter: 07:25 - Assessment and plan (1) GI bleed Current Visit: Yes Status: Acute Assessment and plan: The patient still has some NG drainage that is dark red to coffee grounds. Indicated that she still has some bleeding going on. At this time the patient is tolerating the NG tube well recommend 1 more day of monitoring with the NG tube prior to any possible discharge. Qualifiers: GI bleed type/associated pathology: gastrointestinal hemorrhage with hematemesis Qualified Code(s): K92.0 - Hematemesis (2) Goals of care, counseling/discussion Current Visit: Yes Status: Acute Assessment and plan: Patient is now DNR comfort care. Family is amenable to hospice care, however at this time she is residing at [facility], and still has skilled days left. We will try to utilize these prior to considering for hospice family is arranging for Medicaid. (3) Upper GI bleed Current Visit: No Status: Acute Assessment and plan: The family has opted against any further interventions. No further effusions. Comfort care only at this time. Patient is tolerating the NG tube and therefore is still a comfort measure. - Time Spent With Patient Total time spent is greater than 50% in coordination of care (as documented) at patient's floor/unit and/or counseling patient: - Subjective Interval history: Stable off vent. Still getting drainage from NG tube. The patient is nonverbal. - Constitutional Vitals: Abnormal lab results WBC 15.3 K/mcL (4.3-11.1) H 11/09/16 11:09 RBC 3.13 M/mcL (3.82-4.97) L 11/09/16 11:09 Hgb 7.0 g/dL (11.5-15.4) L D 11/09/16 14:54 Hct 22.0 % (35.3-44.9) L 11/09/16 14:54 MCH 27.8 pg (28.0-33.3) L 11/09/16 11:09 MCHC 30.7 g/dL (31.6-35.5) L 11/09/16 11:09 Neutrophils # 12.5 K/mcL (1.6-8.9) H 11/09/16 11:09 APTT 21.4 Seconds (26.0-36.0) L 11/07/16 18:56 ABG pH 7.50 pH Units (7.32-7.45) H 11/09/16 12:00 ABG pO2 360 mmHg (85-104) H 11/09/16 12:00 ABG HCO3 31.2 mEQ/L (21-27) H 11/09/16 12:00 ABG Total CO2 32.4 mEq/L (20-26) H 11/09/16 12:00 ABG O2 Saturation 100 % (95-98) H 11/09/16 12:00 ABG Base Excess 7.4 mEq/L (-2.0 to 3.0) H 11/09/16 12:00 Sodium 146 mEq/L (136-145) H 11/09/16 11:09 Potassium 3.2 mEq/L (3.5-4.5) L 11/09/16 11:09 BUN 42 mg/dL (7-20) H D 11/09/16 11:09 Creatinine 1.14 mg/dL (0.57-1.11) H 11/09/16 11:09 Est GFR ( Amer) 54 (> 60) L 11/09/16 11:09 Est GFR (Non-Af Amer) 45 (> 60) L 11/09/16 11:09 BUN/Creatinine Ratio 37 (6-26) H 11/09/16 11:09 Glucose 158 mg/dL (70-99) H 11/09/16 11:09 POC Glucose 146 (58-89) H 11/09/16 10:04 Calculated Osmolality 316 (280-300) H 11/09/16 11:09 Serum Total Protein 5.9 g/dL (6.0-8.3) L 11/07/16 18:56 Albumin 3.0 g/dL (3.5-5.0) L 11/07/16 18:56 Albumin/Globulin Ratio 1.0 (1.1-2.2) L 11/07/16 18:56 Gastric Occult Blood Positive (Negative) A 11/07/16 20:00 General appearance: Present: no acute distress - Head Head exam: Present: atraumatic, normal inspection - Eye Eye exam: Present: normal appearance - ENT ENT exam: Present: mucous membranes moist (NG tube in place) - Respiratory Respiratory exam: Present: decreased breath sounds - Cardiovascular Cardiovascular exam: Present: RRR - GI/Abdominal GI/Abdominal exam: Present: normal bowel sounds, soft. Absent: tenderness - Extremities Exam Extremities exam: Present: pedal edema. Absent: normal inspection, tenderness - Neurological Exam Neurological exam: Present: altered - Psychiatric Psychiatric exam: Absent: agitated, anxious - Skin Skin exam: Present: dry, warm Palliative Quality Palliative Quality: Screen for Code Status: Yes, Screen for Goals of Care: Yes, Screen for Pain: Yes, If Pain Regimen Started, Initiate Bowel Regimen: NA, Screen for Nausea/Vomitting: Yes Code Status: 11/07/16 21:00 Resuscitation Status: Active [RES] Routine Comment: Resuscitation Status: DNR-Comfort Care - Labs CBC & Chem 7: 11/09/16 14:54 11/09/16 11:09 Labs: Laboratory Results - last 24 hr 11/09/16 11/09/16 11/09/16 10:04 11:09 11:09 WBC 15.3 H RBC 3.13 L Hgb 8.7 L Hct 28.3 L MCV 90.4 MCH 27.8 L MCHC 30.7 L RDW 13.7 Plt Count 302 MPV 10.5 Immature Gran % 0.8 Seg Neutrophils % 81.5 Lymphocytes % 10.0 Monocytes % 7.6 Eosinophils % 0.0 Basophils % 0.1 Neutrophils # 12.5 H Lymphocytes # 1.5 Monocytes # 1.2 Eosinophils # 0.0 Basophils # 0.0 PT INR ABG pH ABG pCO2 ABG pO2 ABG HCO3 ABG Total CO2 ABG O2 Saturation ABG Base Excess Respiration Rate Blood Gas Modality Sodium 146 H Potassium 3.2 L Chloride 109 Carbon Dioxide 29 BUN 42 H D Creatinine 1.14 H Est GFR ( Amer) 54 L Est GFR (Non-Af Amer) 45 L BUN/Creatinine Ratio 37 H Glucose 158 H POC Glucose 146 H Est Mean Plasma Glucose Hemoglobin A1c Calculated Osmolality 316 H Calcium 8.6 Phosphorus 3.3 Magnesium 1.9 11/09/16 11/09/16 11/09/16 11:09 11:09 12:00 WBC RBC Hgb Hct MCV MCH MCHC RDW Plt Count MPV Immature Gran % Seg Neutrophils % Lymphocytes % Monocytes % Eosinophils % Basophils % Neutrophils # Lymphocytes # Monocytes # Eosinophils # Basophils # PT 11.2 INR 1.0 ABG pH 7.50 H ABG pCO2 40 ABG pO2 360 H ABG HCO3 31.2 H ABG Total CO2 32.4 H ABG O2 Saturation 100 H ABG Base Excess 7.4 H Respiration Rate 12 Blood Gas Modality ASSIST CONTROL Sodium Potassium Chloride Carbon Dioxide BUN Creatinine Est GFR ( Amer) Est GFR (Non-Af Amer) BUN/Creatinine Ratio Glucose POC Glucose Est Mean Plasma Glucose 105 Hemoglobin A1c 5.3 Calculated Osmolality Calcium Phosphorus Magnesium 11/09/16 14:54 WBC RBC Hgb 7.0 L D Hct 22.0 L MCV MCH MCHC RDW Plt Count MPV Immature Gran % Seg Neutrophils % Lymphocytes % Monocytes % Eosinophils % Basophils % Neutrophils # Lymphocytes # Monocytes # Eosinophils # Basophils # PT INR ABG pH ABG pCO2 ABG pO2 ABG HCO3 ABG Total CO2 ABG O2 Saturation ABG Base Excess Respiration Rate Blood Gas Modality Sodium Potassium Chloride Carbon Dioxide BUN Creatinine Est GFR ( Amer) Est GFR (Non-Af Amer) BUN/Creatinine Ratio Glucose POC Glucose Est Mean Plasma Glucose Hemoglobin A1c Calculated Osmolality Calcium Phosphorus Magnesium - Impressions Impressions KUB X-Ray 11/09/16 12:45 IMPRESSION: Suspected large paraesophageal hernia. The stomach is distorted making gastric volvulus difficult to exclude. No gross volvulus is suspected. However, upper GI with small-bowel follow-through may be of value to help exclude gastric outlet obstruction. D/ / 11/09/2016 14:03:24 Raad Mims MD / bcarter Interpreting Provider: Raad Mims MD Abdomen CT 11/09/16 13:30 IMPRESSION: Large hiatal hernia. No gross gastric volvulus is identified. No bowel wall thickening or perforation is evident. No acute process within the upper abdomen. The pelvis is not imaged. Small left pleural effusion with associated left lower lobe atelectasis. D/ / 11/09/2016 12:32:10 Raad Mmis MD / earannette Interpreting Provider: Raad Mims MD Chest CT 11/09/16 13:30 IMPRESSION: 1. Large hiatal hernia with majority of the stomach in the thorax. The enteric catheter loops upon itself in the portion of the stomach that is intra-abdominal and terminates in the portion of the stomach that is intrathoracic. 2. Small left pleural effusion with collapse of the left lower lobe. 3. Age indeterminate compression fracture of T5 with approximately 30% of height loss. 4. ETT tip is 2.7 cm above the belinda. D/ / 11/09/2016 12:33:23 Suresh Mcneill MD / sheldon Interpreting Provider: Suresh Mcneill MD KUB X-Ray 11/09/16 14:35 IMPRESSION: There has been no passage of contrast from the stomach into the intestine, compatible with gastric outlet obstruction D/ / Perico Reinoso MD / Perico Reinoso MD Interpreting Provider: Perico Reinoso MD - ABG Interpretation ABG results: ABG ABG pH 7.50 pH Units (7.32-7.45) H 11/09/16 12:00 ABG pCO2 40 mmHg (35-45) 11/09/16 12:00 ABG pO2 360 mmHg (85-104) H 11/09/16 12:00 ABG O2 Saturation 100 % (95-98) H 11/09/16 12:00 PT/INR, D-dimer PT 11.2 Seconds (9.4-12.1) 11/09/16 11:09 Consult Discharge Plan - Plan Referrals: Librado Bennett MD [Primary Care Provider] - (SENT WEB REQUEST ON 11-08-16 @ [id number])
[2016-11-10] MEDS ORDERED: Pantoprazole 40 MG VIAL IVP SCH (10:15)
[2016-11-10] MEDS: Ondansetron 4 MG/2 ML VIAL IVP PRN (12:33)
[2016-11-10] MEDS: *HR* Morphine 2 MG/ML SYRINGE IVP PRN ×2 (15:25→21:49)
[2016-11-10] MEDS ORDERED: Acetaminophen 325 MG TABLET PO PRN (17:22)
[2016-11-10] MEDS ORDERED: Naloxone 0.4 MG/ML INJ IVP PRN (17:22)
[2016-11-10] MEDS ORDERED: Ondansetron 4 MG/2 ML VIAL IVP PRN (17:22)
[2016-11-11] MEDS: *HR* Morphine 2 MG/ML SYRINGE IVP PRN ×2 (08:55→12:30)
[2016-11-11] MEDS: *HR* LORazepam 2 MG/ML VIAL IVP PRN (08:55)
[2016-11-11] MEDS ORDERED: Pantoprazole 40 MG VIAL IVP SCH (09:00)
[2016-11-11 10:05] VITALS: BP 134/68
--- NOTE | 2016-11-11 10:28 | Palliative Progress Note ---
Date of Encounter: 11/11/16 Time of Encounter: 09:45 - Assessment and plan (1) GI bleed Current Visit: Yes Status: Acute Assessment and plan: The patient. Appears to have stopped Bleeding. There has been no nausea no vomiting G-tube is been out for a day now. Patient is tolerating this well patient's been stabilized otherwise.. Further procedures are planned a further workup is planned patient will be discharged back to [facility] rehabilitation and then consideration for hospice. Qualifiers: GI bleed type/associated pathology: gastrointestinal hemorrhage with hematemesis Qualified Code(s): K92.0 - Hematemesis (2) Goals of care, counseling/discussion Current Visit: Yes Status: Acute Assessment and plan: Patient is now DNR comfort care. Family is amenable to hospice care, however at this time she is residing at [facility], and still has skilled days left. And for today is to discharge the [facility] U skilled days and then consider for hospice. (3) Upper GI bleed Current Visit: No Status: Acute Assessment and plan: The family has opted against any further interventions. For measures only at this time however it does appear that the patient has stopped bleeding at least temporarily. e. - Time Spent With Patient Total time spent is greater than 50% in coordination of care (as documented) at patient's floor/unit and/or counseling patient: - Subjective Interval history: The patient is currently nonverbal, however family tells me that she has been conversing with family members who have previously passed. She is calm and comfortable and has done so well during the night with few medications being required. Stable, there does not appear to be any further GI bleeding at this time. - Constitutional Vitals: Abnormal lab results WBC 15.3 K/mcL (4.3-11.1) H 11/09/16 11:09 RBC 3.13 M/mcL (3.82-4.97) L 11/09/16 11:09 Hgb 7.0 g/dL (11.5-15.4) L D 11/09/16 14:54 Hct 22.0 % (35.3-44.9) L 11/09/16 14:54 MCH 27.8 pg (28.0-33.3) L 11/09/16 11:09 MCHC 30.7 g/dL (31.6-35.5) L 11/09/16 11:09 Neutrophils # 12.5 K/mcL (1.6-8.9) H 11/09/16 11:09 APTT 21.4 Seconds (26.0-36.0) L 11/07/16 18:56 ABG pH 7.50 pH Units (7.32-7.45) H 11/09/16 12:00 ABG pO2 360 mmHg (85-104) H 11/09/16 12:00 ABG HCO3 31.2 mEQ/L (21-27) H 11/09/16 12:00 ABG Total CO2 32.4 mEq/L (20-26) H 11/09/16 12:00 ABG O2 Saturation 100 % (95-98) H 11/09/16 12:00 ABG Base Excess 7.4 mEq/L (-2.0 to 3.0) H 11/09/16 12:00 Sodium 146 mEq/L (136-145) H 11/09/16 11:09 Potassium 3.2 mEq/L (3.5-4.5) L 11/09/16 11:09 BUN 42 mg/dL (7-20) H D 11/09/16 11:09 Creatinine 1.14 mg/dL (0.57-1.11) H 11/09/16 11:09 Est GFR ( Amer) 54 (> 60) L 11/09/16 11:09 Est GFR (Non-Af Amer) 45 (> 60) L 11/09/16 11:09 BUN/Creatinine Ratio 37 (6-26) H 11/09/16 11:09 Glucose 158 mg/dL (70-99) H 11/09/16 11:09 POC Glucose 146 (58-89) H 11/09/16 10:04 Calculated Osmolality 316 (280-300) H 11/09/16 11:09 Serum Total Protein 5.9 g/dL (6.0-8.3) L 11/07/16 18:56 Albumin 3.0 g/dL (3.5-5.0) L 11/07/16 18:56 Albumin/Globulin Ratio 1.0 (1.1-2.2) L 11/07/16 18:56 Gastric Occult Blood Positive (Negative) A 11/07/16 20:00 General appearance: Present: no acute distress - Head Head exam: Present: atraumatic, normal inspection - Eye Eye exam: Present: normal appearance - Respiratory Respiratory exam: Present: decreased breath sounds - Cardiovascular Cardiovascular exam: Present: RRR - GI/Abdominal GI/Abdominal exam: Present: normal bowel sounds, soft. Absent: tenderness - Extremities Exam Extremities exam: Present: pedal edema (slight) - Neurological Exam Neurological exam: Present: altered - Psychiatric Psychiatric exam: Absent: agitated, anxious - Skin Skin exam: Present: dry, warm Palliative Quality Palliative Quality: Screen for Code Status: Yes, Screen for Goals of Care: Yes, Screen for Pain: Yes, If Pain Regimen Started, Initiate Bowel Regimen: NA, Screen for Nausea/Vomitting: Yes Code Status: 11/07/16 21:00 Resuscitation Status: Active [RES] Routine Comment: Resuscitation Status: DNR-Comfort Care - Labs CBC & Chem 7: 11/09/16 14:54 11/09/16 11:09 - Impressions Impressions Chest CT 11/09/16 13:30 IMPRESSION: 1. Large hiatal hernia with majority of the stomach in the thorax. The enteric catheter loops upon itself in the portion of the stomach that is intra-abdominal and terminates in the portion of the stomach that is intrathoracic. 2. Small left pleural effusion with collapse of the left lower lobe. 3. Age indeterminate compression fracture of T5 with approximately 30% of height loss. 4. ETT tip is 2.7 cm above the belinda. D/ : / 11/09/2016 12:33:23 Suresh Mcneill MD / sheldon Interpreting Provider: Suresh Mcneill MD - ABG Interpretation ABG results: ABG ABG pH 7.50 pH Units (7.32-7.45) H 11/09/16 12:00 ABG pCO2 40 mmHg (35-45) 11/09/16 12:00 ABG pO2 360 mmHg (85-104) H 11/09/16 12:00 ABG O2 Saturation 100 % (95-98) H 11/09/16 12:00 PT/INR, D-dimer PT 11.2 Seconds (9.4-12.1) 11/09/16 11:09 Consult Discharge Plan - Plan Referrals: Librado Bennett MD [Primary Care Provider] - (SENT WEB REQUEST ON 11-08-16 @ [id number])
[2016-11-11] MEDS ORDERED: Acetaminophen 325 MG TABLET PO PRN (12:53)
--- NOTE | 2016-11-11 13:04 | Discharge Summary ---
<Alecia Lake - Last Filed: 11/11/16 13:01> Date of Encounter: 11/11/16 Time of Encounter: 11:00 - Discharge Diagnosis (1) Upper GI bleed Priority: Primary Status: Acute (2) Hematemesis Priority: Primary Status: Acute Qualifiers: Nausea presence: with nausea Qualified Code(s): K92.0 - Hematemesis; R11.0 - Nausea (3) Anemia Priority: Secondary Status: Acute Qualifiers: Anemia type: other cause Other causes of anemia: acute posthemorrhagic Qualified Code(s): D62 - Acute posthemorrhagic anemia (4) GERD (gastroesophageal reflux disease) Priority: Secondary Status: Chronic Qualifiers: Esophagitis presence: esophagitis presence not specified Qualified Code(s) : K21.9 - Gastro-esophageal reflux disease without esophagitis (5) Hypertension Priority: Secondary Status: Chronic Qualifiers: Hypertension type: essential hypertension Qualified Code(s): I10 - Essential (primary) hypertension (6) Goals of care, counseling/discussion Priority: Primary Status: Acute (7) DVT prophylaxis Priority: Secondary Status: Acute - Discharge Medications Prescriptions: LORazepam [Ativan] 1 mg SL Q4HR PRN 30 Days PRN Reason: Agitation Ondansetron ODT [Zofran ODT] 4 mg SL Q4HR 30 Days Morphine [Morphine Sulfate] 3 mg SL Q1H PRN 30 Days PRN Reason: Pain Naloxone [Narcan] 0.4 mg IM ONCE #10 syringe Omeprazole [PriLOSEC] 40 mg PO DAILY 30 Days Home Medications: LORazepam [Ativan] 1 mg SL Q4HR PRN 30 Days 11/11/16 [Rx] Morphine [Morphine Sulfate] 3 mg SL Q1H PRN 30 Days 11/11/16 [Rx] Naloxone [Narcan] 0.4 mg IM ONCE #10 syringe 11/11/16 [Rx] Omeprazole [PriLOSEC] 40 mg PO DAILY 30 Days 11/11/16 [Rx] Ondansetron ODT [Zofran ODT] 4 mg SL Q4HR 30 Days 11/11/16 [Rx] Allergies/Adverse Reactions: Allergies No Known Allergies Allergy (Verified 09/08/16 02:27) Procedures/tests Complete & Pending: Procedures Performed prior 72 hours Category Date Time Status CT abdomen w iv no oral [CT] Stat Cat Scan 11/09/16 13:[address] chest w con [CT] Stat Cat Scan 11/09/16 13:30 Completed ECG 12 lead ECG [ECG] Routine Y 11/09/16 09:39 Completed Date of admission: 11/08/16 17:04 Primary care physician: Librado Bennett MD Consults: 11/09/16 15:22 Consult to Palliative Care [CONS] Routine Comment: Consulting Provider: Palliative Care Pax 11/10/16 10:35 Consult to Invasive Line Access Team [CONS] Routine Reason for Consult: PIVs failed Line Type: EPIV Discharging clinician: Joe Tierney Anticipated date of discharge: 11/11/16 - Patient Status Disposition: Transfer SNF Condition: Serious Overall status at discharge: patient is not back to baseline - Discharge Instructions Instructions: Gastrointestinal Bleeding (DC), Anemia (GEN) Follow Up With: Librado Bennett MD [Primary Care Provider] - (SENT WEB REQUEST ON 11-08-16 @ [id number]) Forms: ED Satisfaction Letter - Diet and Activity Activity: resume usual activities as tolerated Diet: advance to your usual diet (Patient NPO at this time. ) Hospital course: Ms. Honeycutt is a 89 year old female with past medical history of dementia, GI bleed, GERD, recent hip fracture who presented to hospital from [facility]. Pt underwent EGD on 11/03/16 which showed large hiatal hernia with 2 localized spots with visible vessels with no bleeding. Vessels were clipped. Patient was discharged on 11/05/16. Patient returned to [facility] on 11/08/16 and was admitted for upper GI bleed, recurrent hematemesis, and anemia. EGD performed 11/09/16 revealed large hiatal hernia, 1500mL coffee-ground material in stomach, gastric volvulus, no gastric ischemia. At this point, the family made it clear that patient's code status is DNR-comfort care. They stated that patient would no want to have aggressive care. This included stopping blood draws, transfusions, further procedures. Patient is stable for discharge to [facility]. She will require bed rails to be placed on her bed to prevent falls, as she is restless at this time. Patient will be discharged on medications to aid in her comfort only. - Time Spent with Patient Total time spent providing and/or coordinating discharge services: Greater than 30 minutes (30 minutes including time with patient and coordinating care) - Constitutional Vitals: Temp Pulse Resp BP Pulse Ox 97.8 F 82 16 134/68 91 L 11/11/16 10:04 11/11/16 10:04 11/11/16 10:04 11/11/16 10:04 11/11/16 10:04 General appearance: Present: A&O X 0 (intubated and sedated ), cooperative - Head Head exam: Present: atraumatic, normal inspection, normocephalic - Eye Additional comments: Eyes closed. Patient resting comfortably in bed. - Neck Neck exam general surgery: Present: supple, trachea midline - Respiratory Respiratory exam: Present: CTAB. Absent: accessory muscle use, rales, rhonchi, wheezes - Cardiovascular Cardiovascular exam: Present: RRR, +S1, +S2. Absent: diastolic murmur, gallop, rubs, systolic murmur - GI/Abdominal GI/Abdominal exam: Present: normal bowel sounds, soft, no peritoneal signs. Absent: distended, tenderness - Extremities Exam Extremities exam: Present: warm. Absent: cyanotic, pedal edema - Neurological Exam Additional comments: Neuro exam unable to be performed due to patient's lethargic state - Skin Skin exam: Present: dry, intact <Kelsy,Joe P - Last Filed: 11/11/16 18:42> Procedures/tests Complete & Pending: Procedures Performed prior 72 hours Category Date Time Status CT abdomen w iv no oral [CT] Stat Cat Scan 11/09/16 13:[address] chest w con [CT] Stat Cat Scan 11/09/16 13:30 Completed ECG 12 lead ECG [ECG] Routine Y 11/09/16 09:39 Completed Date of admission: 11/08/16 17:04 Primary care physician: Librado Bennett MD Consults: 11/09/16 15:22 Consult to Palliative Care [CONS] Routine Comment: Consulting Provider: Palliative Care Fernanda 11/10/16 10:35 Consult to Invasive Line Access Team [CONS] Routine Reason for Consult: PIVs failed Line Type: EPIV Hospital course: Ms. Honeycutt is a 89 year old female - Time Spent with Patient Total time spent providing and/or coordinating discharge services: - Constitutional Vitals: Temp Pulse Resp BP Pulse Ox 97.8 F 82 16 134/68 91 L 11/11/16 10:04 11/11/16 10:04 11/11/16 10:04 11/11/16 10:04 11/11/16 10:04 - Attending Attestation I examined this patient and my medical decision-making was reviewed with the [facility]/PA/Advanced Practice Nurse/Resident Physician. I agree with the documented findings, disposition and treatment plan as described except to the extent set forth below.
--- NOTE | 2016-11-11 14:00 | Physician Discharge Referral ---
<JayaAlecia Minh - Last Filed: 11/11/16 14:02> ExtendedCare Referral Info Transfer To: [facility] Provider in Charge: Dr. Joe Tierney MD Provider in Charge after Transfer: PCP Institutional Level of Care: Skilled - Diagnosis (1) Upper GI bleed Priority: Primary Status: Acute (2) Hematemesis Priority: Primary Status: Acute (3) Anemia Priority: Secondary Status: Acute (4) GERD (gastroesophageal reflux disease) Priority: Secondary Status: Chronic (5) Hypertension Priority: Secondary Status: Chronic (6) Goals of care, counseling/discussion Priority: Secondary Status: Acute (7) DVT prophylaxis Priority: Secondary Status: Acute Prognosis: Poor Aware of Diagnosis: Family Aware of Prognosis: Family - Transfer Medications Prescriptions: LORazepam [Ativan] 1 mg SL Q4HR PRN 30 Days PRN Reason: Agitation Ondansetron ODT [Zofran ODT] 4 mg SL Q4HR 30 Days Morphine [Morphine Sulfate] 3 mg SL Q1H PRN 30 Days PRN Reason: Pain Naloxone [Narcan] 0.4 mg IM ONCE #10 syringe Omeprazole [PriLOSEC] 40 mg PO DAILY 30 Days Home Medications: LORazepam [Ativan] 1 mg SL Q4HR PRN 30 Days 11/11/16 [Rx] Morphine [Morphine Sulfate] 3 mg SL Q1H PRN 30 Days 11/11/16 [Rx] Naloxone [Narcan] 0.4 mg IM ONCE #10 syringe 11/11/16 [Rx] Omeprazole [PriLOSEC] 40 mg PO DAILY 30 Days 11/11/16 [Rx] Ondansetron ODT [Zofran ODT] 4 mg SL Q4HR 30 Days 11/11/16 [Rx] Allergies/Adverse Reactions: Allergies No Known Allergies Allergy (Verified 09/08/16 02:27) - Respiratory Orders Smoking Cessation: Smoking cessation has been advised. For more information, call the [place] Tobacco Quit Line at 1-281-NWWE-NOW. - Ancillary Orders May use pressure relief devices daily prn - Advance Directives Living Will: Yes Power of Model [employer] Firearms: Yes Code Status: DNR-Comfort Care - Mobility Orders Bedrest - Rehabiliation Orders Rehab Potential: Poor - Treatments List/Other: Requires Bed Rails for bed - Diet Orders Regular (NPO at this time.) CERTIFICATION: I certify that the transfer of the above named patient to an Extended Care Facility is necessary for the continuing treatment of the diagnosis listed. The above information is true and accurate reflection of patient's current condition. Confidential - Redisclosure prohibited without a patient's written consent. <Joe Tierney P - Last Filed: 11/11/16 18:43> - Respiratory Orders Smoking Cessation: Smoking cessation has been advised. For more information, call the [place] Tobacco Quit Line at 0-140-EMBC-NOW. CERTIFICATION: I certify that the transfer of the above named patient to an Extended Care Facility is necessary for the continuing treatment of the diagnosis listed. The above information is true and accurate reflection of patient's current condition. Confidential - Redisclosure prohibited without a patient's written consent.
== END 2016-11-11 15:12 | DRG 377 ==
LOC: 2NNU 18:05 → EMEROO 18:05 → 2NNU 20:20 → ICNU 11-09 09:38 → 2ANU 11-10 16:43
PROVIDERS: ADMIT Internal Medicine; ATTEND Internal Medicine Endocrinology, Diabetes & Metabolism